=== PATIENT | male | born 1960 | race American Indian/Alaskan Native ===

== ENCOUNTER 2017-07-23 03:03 | Emergency (ER) | payer MEDICARE ==
[2017-07-23] MEDS ORDERED: QUELICIN ONE (03:13)
[2017-07-23] MEDS ORDERED: VERSED IV ONE (03:13)
[2017-07-23] MEDS ORDERED: XOPENEX IH ONE ×2 (03:32→03:48)
[2017-07-23] MEDS ORDERED: ATROVENT IH ONE ×2 (03:32→03:48)
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
--- NOTE | 2017-07-23 04:20 | XRay Report ---
FINAL REPORT EXAM: XR CHEST 1V AP HISTORY: POST ETT PLACEMENT. TECHNIQUE: A portable supine view of the chest was obtained. FINDINGS: The tip of the ET tube is 3 cm above the iliana. There is an NG tube coursing into the stomach. The lungs reveal diffuse interstitial prominence suspicious for congestive heart failure. There are no localized infiltrates. The heart size is normal. Pleural fluid is not seen. The bones and soft tissues do not show any acute changes. IMPRESSION: Satisfactory intubation and placement of nasogastric tube. Congestive heart failure pattern.
[2017-07-23] MEDS ORDERED: AMIDATE IV ONE ×2 (04:22→04:23)
[2017-07-23 04:36] LABS: Hematocrit 23.6 % (35.5-45.6); Hemoglobin 8.4 gm/dl (11.8-15.2); Mean Corpuscular HGB Conc 36 % (32-34); Mean Corpuscular Hemoglobin 31 pg (28-32); Mean Corpuscular Volume 86 fl (84-94); Platelet Count 218 K/mm3 (140-440); Red Blood Count 2.73 M/mm3 (3.65-5.03)
[2017-07-23 04:55] LABS: Creatine Kinase MB 5.5 ng/mL (0.0-4.0)
[2017-07-23 04:58] LABS: Albumin 2.6 g/dL (3.9-5); BUN/Creatinine Ratio 9; Blood Urea Nitrogen 71 mg/dL (9-20); Calcium 7.5 mg/dL (8.4-10.2); Hemolysis Index 40
[2017-07-23] MEDS ORDERED: fentaNYL DRIP Premix 2,000 MCG/100 ML BAG IV SCH (05:00)
[2017-07-23] MEDS ORDERED: DIPRIVAN 10 MG/ML 1,000 MG/100 ML BOTTLE IV SCH (05:00)
[2017-07-23 05:17] LABS: Alanine Aminotransferase < 5 units/L (7-56)
[2017-07-23 05:20] LABS: Chol/HDL Ratio 2.44 %; HDL Cholesterol 47 mg/dL (40-59)
[2017-07-23 05:20] LABS: Bilirubin,Urine NEG (Negative); Blood,Urine MOD (Negative); Color,Urine Straw (Yellow); Hyaline Casts,Urine 1 /LPF; Nitrite,Urine NEG (Negative); Protein,Urine >500 mg/dL (Negative); Urobilinogen,Urine < 2.0 mg/dL (<2.0)
[2017-07-23 05:28] LABS: Amphetamine Screen,Urine PRESUMPTIVE NEGATIVE; Benzodiazepines Screen,Urine PRESUMPTIVE NEGATIVE; Cannabinoid Screen,Urine PRESUMPTIVE NEGATIVE; Cocaine Screen,Urine PRESUMPTIVE NEGATIVE; Methadone Screen,Urine PRESUMPTIVE NEGATIVE; Opiate Screen,Urine PRESUMPTIVE NEGATIVE
--- NOTE | 2017-07-23 05:29 | Cat Scan Report ---
FINAL REPORT EXAM: CT HEAD/BRAIN WO CON HISTORY: ams TECHNIQUE: Routine axial imaging was obtained of the brain without IV contrast. FINDINGS: There is no evidence of acute stroke or hemorrhage. The ventricular system is appropriate in size and is symmetric. The basal cisterns appear normal. The visualized sinuses are clear. The mastoid air cells are well pneumatized IMPRESSION: No acute intracranial process.
[2017-07-23 05:32] LABS: LDL Cholesterol,Direct TNR mg/dL (50-130)
[2017-07-23] MEDS ORDERED: HEPARIN/ 0.45% NACL-25,000 UNIT/500 ML 25,000 UNIT/500 ML BAG IV SCH (06:00)
[2017-07-23 06:31] VITALS: BP 120/77
[2017-07-23 06:34] LABS: Partial Thromboplastin Time 29.1 Sec. (24.2-36.6)
[2017-07-23] MEDS ORDERED: DIPRIVAN 10 MG/ML 1,000 MG/100 ML BOTTLE IV ONE (07:16)
[2017-07-23 10:00] LABS: Band Neutrophils # (Manual) 0.7 K/mm3; Basophils % (Manual) 0 % (0.0-1.8); Total Cells Counted 100
[2017-07-23 10:02] LABS: Anisocytosis 1+
[2017-07-23 10:03] LABS: Schistocytes Few
[2017-07-23 10:05] LABS: Poikilocytosis 2+
== END 2017-07-23 06:43 | disposition other institution (70) ==
LOC: ED 03:03
DX: T54.2X1A Toxic effect of corrosive acids and acid-like substances, accidental (unintentional), initial encounter (principal); T54.91XA Toxic effect of unspecified corrosive substance, accidental (unintentional), initial encounter; T27.7XXA Corrosion of respiratory tract, part unspecified, initial encounter; E11.22 Type 2 diabetes mellitus with diabetic chronic kidney disease; I13.0 Hypertensive heart and chronic kidney disease with heart failure and stage 1 through stage 4 chronic kidney disease, or unspecified chronic kidney disease; N18.9 Chronic kidney disease, unspecified; I21.4 Non-ST elevation (NSTEMI) myocardial infarction; E87.2 Acidosis; D64.9 Anemia, unspecified; J45.909 Unspecified asthma, uncomplicated; F17.200 Nicotine dependence, unspecified, uncomplicated; Y93.89 Activity, other specified; Y99.8 Other external cause status; Y92.009 Unspecified place in unspecified non-institutional (private) residence as the place of occurrence of the external cause
CPT/HCPCS: 31500; 36415; 51702; 70450; 71045; 80053; 80061; 80307; 81001; 82140; 82550; 82553; 82803; 83880; 84484; 85007; 85025; 85610; 85730; 87070; 87205; 93005; 93010; 94640; 96374; 99291; J0330; J2250; J2704; J3010; 94002

== ENCOUNTER 2020-03-08 14:53 | Emergency (ER) | payer MEDICARE ==
--- NOTE | 2020-03-08 15:57 | XRay Report ---
XR chest 1V ap INDICATION / CLINICAL INFORMATION: Chest Pain COMPARISON: None available. FINDINGS: SUPPORT DEVICES: None. HEART / MEDIASTINUM: No significant abnormality. LUNGS / PLEURA: Lungs are clear. Costophrenic sulci are sharp. No pneumothorax. ADDITIONAL FINDINGS: No significant additional findings. IMPRESSION: 1. No acute findings. Signer Name: Jae Metzger MD Signed: 03/08/2020 3:53 PM Workstation Name: [id number]
[2020-03-08 17:41] LABS: Basophils # (Auto) 0.1 K/mm3 (0.0-0.1); Basophils % (Auto) 0.7 % (0.0-1.8); Eosinophils # (Auto) 0.2 K/mm3 (0.0-0.4); Hematocrit 41.1 % (35.5-45.6); Hemoglobin 13.7 gm/dl (11.8-15.2); Lymphocytes # (Auto) 1.1 K/mm3 (1.2-5.4); Lymphocytes % (Auto) 14.6 % (13.4-35.0); Mean Corpuscular HGB Conc 33 % (32-34); Mean Corpuscular Volume 93 fl (84-94); Monocytes # (Auto) 0.7 K/mm3 (0.0-0.8); Platelet Count 209 K/mm3 (140-440); Red Blood Count 4.41 M/mm3 (3.65-5.03); Red Cell Distribution Width 18.1 % (13.2-15.2)
[2020-03-08 18:00] LABS: Chol/HDL Ratio 2.67 %
--- NOTE | 2020-03-08 18:30 | Emergency Department Report ---
ED General Adult HPI - General Chief complaint: Syncope Stated complaint: KIDNEY PAIN Time Seen by Provider: 03/08/20 18:05 Source: patient, family Mode of arrival: Wheelchair Limitations: No Limitations - History of Present Illness Initial comments: The patient presents to the emergency department the chief complaint of cramping throughout his whole body status post dialysis. Patient states he had dialysis today and during his treatment he began to have cramping of his legs which spread to the rest of his body. Patient states afterwards passed out while riding in the vehicle with the sister. Patient states he has passed out before status post dialysis. Patient did have episode of nausea and vomiting. Patient denies chest pain, shortness breath, or headache. -: Sudden Severity scale (0 -10): 2 Quality: other (cramping) Consistency: constant Improves with: none Worsens with: none Associated Symptoms: denies other symptoms Treatments Prior to Arrival: none - Related Data Home Medications Medication Instructions Recorded Confirmed Last Taken Aspirin 81 mg PO DAILY 05/25/18 05/25/18 Unknown Atorvastatin Calcium 80 mg PO DAILY 05/25/18 05/25/18 Unknown Clopidogrel [Plavix] 75 mg PO QDAY 05/25/18 05/25/18 Unknown Furosemide [Lasix TAB] 40 mg PO QDAY 05/25/18 05/25/18 Unknown Hydralazine HCl 50 mg PO TID 05/25/18 05/25/18 Unknown Metoprolol Tartrate 25 mg PO BID 05/25/18 05/25/18 Unknown Tamsulosin [Flomax] 0.4 mg PO QDAY 05/25/18 05/25/18 Unknown amLODIPine 10 mg PO DAILY 05/25/18 05/25/18 05/24/18 09:00 lisinopriL [Zestril TAB] 10 mg PO QDAY 05/25/18 05/25/18 Unknown Previous Rx's Medication Instructions Recorded Last Taken Type Albuterol Sulfate [Ventolin Hfa] 18 gm IH PRN #1 hfa.aer.ad 05/28/18 Unknown Rx Ipratropium/Albuterol Sulfate 1 ampul IH Q8HR #90 ampul.neb 05/28/18 Unknown Rx [DUONEB *Not for PRN Use*] Prednisone [predniSONE 5 mg (6-Day 5 mg PO .TAPER #1 tab.ds.pk 05/28/18 Unknown Rx Pack, 21 Tabs)] Allergies Allergy/AdvReac Type Severity Reaction Status Date / Time No Known Allergies Allergy Verified 03/26/13 02:01 ED Review of Systems ROS: Stated complaint: KIDNEY PAIN Other details as noted in HPI Comment: All other systems reviewed and negative Constitutional: denies: chills, fever Eyes: denies: eye pain, eye discharge, vision change ENT: denies: ear pain, throat pain Respiratory: denies: cough, shortness of breath, wheezing Cardiovascular: denies: chest pain, palpitations Endocrine: no symptoms reported Gastrointestinal: denies: abdominal pain, nausea, diarrhea Genitourinary: denies: urgency, dysuria Musculoskeletal: denies: back pain, joint swelling, arthralgia Skin: denies: rash, lesions Neurological: denies: headache, weakness, paresthesias Psychiatric: denies: anxiety, depression Hematological/Lymphatic: denies: easy bleeding, easy bruising ED Past Medical Hx - Past Medical History Previous Medical History?: Yes Hx Hypertension: Yes Hx Heart Attack/AMI: Yes Hx Congestive Heart Failure: Yes Hx Diabetes: Yes Hx Renal Disease: Yes Hx Asthma: Yes Additional medical history: sciatica, enlarged pancreas - Surgical History Past Surgical History?: Yes Additional Surgical History: fistula repair, cerbral aneurysm - Social History Smoking Status: Never Smoker Substance Use Type: None - Medications Home Medications: Home Medications Medication Instructions Recorded Confirmed Last Taken Type Aspirin 81 mg PO DAILY 05/25/18 05/25/18 Unknown History Atorvastatin Calcium 80 mg PO DAILY 05/25/18 05/25/18 Unknown History Clopidogrel [Plavix] 75 mg PO QDAY 05/25/18 05/25/18 Unknown History Furosemide [Lasix TAB] 40 mg PO QDAY 05/25/18 05/25/18 Unknown History Hydralazine HCl 50 mg PO TID 05/25/18 05/25/18 Unknown History Metoprolol Tartrate 25 mg PO BID 05/25/18 05/25/18 Unknown History Tamsulosin [Flomax] 0.4 mg PO QDAY 05/25/18 05/25/18 Unknown History amLODIPine 10 mg PO DAILY 05/25/18 05/25/18 05/24/18 09:00 History lisinopriL [Zestril TAB] 10 mg PO QDAY 05/25/18 05/25/18 Unknown History Albuterol Sulfate [Ventolin Hfa] 18 gm IH PRN #1 hfa.aer.ad 05/28/18 Unknown Rx Ipratropium/Albuterol Sulfate 1 ampul IH Q8HR #90 ampul.neb 05/28/18 Unknown Rx [DUONEB *Not for PRN Use*] Prednisone [predniSONE 5 mg (6-Day 5 mg PO .TAPER #1 tab.ds.pk 05/28/18 Unknown Rx Pack, 21 Tabs)] ED Physical Exam - General Limitations: No Limitations General appearance: alert, in no apparent distress - Head Head exam: Present: atraumatic, normocephalic - Eye Eye exam: Present: normal appearance, PERRL, EOMI - ENT ENT exam: Present: mucous membranes moist - Neck Neck exam: Present: normal inspection - Respiratory Respiratory exam: Present: normal lung sounds bilaterally. Absent: respiratory distress - Cardiovascular Cardiovascular Exam: Present: regular rate, normal rhythm. Absent: systolic murmur, diastolic murmur, rubs, gallop - GI/Abdominal GI/Abdominal exam: Present: soft, normal bowel sounds. Absent: distended, tenderness - Rectal Rectal exam: Present: deferred - Extremities Exam Extremities exam: Present: other (AV fistula left upper extremity) - Back Exam Back exam: Present: normal inspection - Neurological Exam Neurological exam: Present: alert, oriented X3, CN II-XII intact. Absent: motor sensory deficit - Psychiatric Psychiatric exam: Present: normal affect, normal mood - Skin Skin exam: Present: warm, dry, intact, normal color. Absent: rash ED Course Vital Signs 03/08/20 03/08/20 03/08/20 15:31 17:37 19:01 Temperature 98.4 F 97.9 F Pulse Rate 86 87 83 Respiratory 16 17 19 Rate Blood Pressure 121/64 152/83 Blood Pressure 187/87 [Right] O2 Sat by Pulse 100 100 100 Oximetry ED Medical Decision Making - Lab Data Result diagrams: 03/08/20 16:51 03/08/20 16:51 Lab Results 03/08/20 03/08/20 03/08/20 Range/Units 15:50 16:51 16:51 WBC 7.6 (4.5-11.0) K/mm3 RBC 4.41 (3.65-5.03) M/mm3 Hgb 13.7 (11.8-15.2) gm/dl Hct 41.1 (35.5-45.6) % MCV 93 (84-94) fl MCH 31 (28-32) pg MCHC 33 (32-34) % RDW 18.1 H (13.2-15.2) % Plt Count 209 (140-440) K/mm3 Lymph % (Auto) 14.6 (13.4-35.0) % Jessamine % (Auto) 9.0 H (0.0-7.3) % Eos % (Auto) 2.0 (0.0-4.3) % Baso % (Auto) 0.7 (0.0-1.8) % Lymph # (Auto) 1.1 L (1.2-5.4) K/mm3 Jessamine # (Auto) 0.7 (0.0-0.8) K/mm3 Eos # (Auto) 0.2 (0.0-0.4) K/mm3 Baso # (Auto) 0.1 (0.0-0.1) K/mm3 Seg Neutrophils % 73.7 H (40.0-70.0) % Seg Neutrophils # 5.6 (1.8-7.7) K/mm3 Sodium 144 (137-145) mmol/L Potassium 4.9 (3.6-5.0) mmol/L Chloride 93.9 L (98-107) mmol/L Carbon Dioxide 34 H (22-30) mmol/L Anion Gap 21 mmol/L BUN 24 H (9-20) mg/dL Creatinine 5.8 H (0.8-1.3) mg/dL Estimated GFR 12 ml/min BUN/Creatinine Ratio 4 % Glucose 110 H (75-100) mg/dL POC Glucose 109 H (70-105) Calcium 10.0 (8.4-10.2) mg/dL Total Bilirubin (0.1-1.2) mg/dL Direct Bilirubin (0-0.2) mg/dL Indirect Bilirubin mg/dL AST (5-40) units/L ALT (7-56) units/L Alkaline Phosphatase (35-129) units/L Troponin T 0.169 H* (0.00-0.029) ng/mL Total Protein (6.3-8.2) g/dL Albumin (3.9-5) g/dL Albumin/Globulin Ratio % Triglycerides 114 (2-149) mg/dL Cholesterol 190 (50-199) mg/dL LDL Cholesterol Direct 113 (50-130) mg/dL HDL Cholesterol 71 H (40-59) mg/dL Cholesterol/HDL Ratio 2.67 % 03/08/20 03/08/20 Range/Units 19:00 19:00 WBC (4.5-11.0) K/mm3 RBC (3.65-5.03) M/mm3 Hgb (11.8-15.2) gm/dl Hct (35.5-45.6) % MCV (84-94) fl MCH (28-32) pg MCHC (32-34) % RDW (13.2-15.2) % Plt Count (140-440) K/mm3 Lymph % (Auto) (13.4-35.0) % Jess[place] % (Auto) (0.0-7.3) % Eos % (Auto) (0.0-4.3) % Baso % (Auto) (0.0-1.8) % Lymph # (Auto) (1.2-5.4) K/mm3 Jess[place] # (Auto) (0.0-0.8) K/mm3 Eos # (Auto) (0.0-0.4) K/mm3 Baso # (Auto) (0.0-0.1) K/mm3 Seg Neutrophils % (40.0-70.0) % Seg Neutrophils # (1.8-7.7) K/mm3 Sodium (137-145) mmol/L Potassium (3.6-5.0) mmol/L Chloride (98-107) mmol/L Carbon Dioxide (22-30) mmol/L Anion Gap mmol/L BUN (9-20) mg/dL Creatinine (0.8-1.3) mg/dL Estimated GFR ml/min BUN/Creatinine Ratio % Glucose (75-100) mg/dL POC Glucose (70-105) Calcium (8.4-10.2) mg/dL Total Bilirubin 0.50 (0.1-1.2) mg/dL Direct Bilirubin < 0.2 (0-0.2) mg/dL Indirect Bilirubin 0.3 mg/dL AST 20 (5-40) units/L ALT 10 (7-56) units/L Alkaline Phosphatase 60 (35-129) units/L Troponin T 0.163 H* (0.00-0.029) ng/mL Total Protein 7.8 (6.3-8.2) g/dL Albumin 5.2 H (3.9-5) g/dL Albumin/Globulin Ratio 2.0 % Triglycerides (2-149) mg/dL Cholesterol (50-199) mg/dL LDL Cholesterol Direct (50-130) mg/dL HDL Cholesterol (40-59) mg/dL Cholesterol/HDL Ratio % - EKG Data -: EKG Interpreted by Me EKG shows normal: sinus rhythm Rate: normal - Radiology Data Radiology results: report reviewed - Medical Decision Making Review of the patient's past medical records show that they have had elevated troponin in the past with the patient being chest pain-free elevated troponins likely secondary to the patient being dialysis recipient Discussed results with patient Patient politely declined admission Critical care attestation.: If time is entered above; I have spent that time in minutes in the direct care of this critically ill patient, excluding procedure time. ED Disposition Clinical Impression: Muscle cramping, Syncope Disposition: DC-01 TO HOME OR SELFCARE Is pt being admited?: No Does the pt Need Aspirin: No Condition: Stable Instructions: Syncope (ED), Muscle Spasm (ED) Additional Instructions: return if worse Referrals: PRIMARY CAREMD [Primary Care Provider] - 3-5 Days LEILANI AL MD [Staff Physician] - 3-5 Days Time of Disposition: 21:24
[2020-03-08] MEDS ORDERED: ONDANSETRON 4 MG/2 ML INJ IV ONE (18:31)
[2020-03-08] MEDS ORDERED: MORPHINE 4 MG/1 ML INJ IV ONE (18:31)
[2020-03-08 19:38] LABS: Alanine Aminotransferase 10 units/L (7-56); Albumin 5.2 g/dL (3.9-5)
[2020-03-08 19:41] LABS: Bilirubin,Direct < 0.2 mg/dL (0-0.2)
--- NOTE | 2020-03-08 19:59 | Cat Scan Report ---
CT head/brain wo con INDICATION / CLINICAL INFORMATION: 59 years Male; syncope. TECHNIQUE: Routine CT head without contrast. All CT scans at this location are performed using CT dos e reduction for ALARA by means of automated exposure control. COMPARISON: None. FINDINGS: BRAIN / INTRACRANIAL CONTENTS: No acute hemorrhage, mass effect, midline shift, hydrocephalus, or acu te, large territorial infarct. No chronic infarct or atrophy appreciated. There are [id number] areas of decreased attenuation in the white matter of the cerebral hemisph eres, as well as the gangliocapsular regions. These are nonspecific findings and may be related to mi croangiopathy (hypertension, diabetes, atherosclerosis), given the patient's age. Pontine disease not ed - lacunar infarcts seen leftward of midline. CRANIOCERVICAL JUNCTION: No significant abnormality. ORBITS: No significant abnormality of visualized orbits. SINUSES / MASTOIDS: Mild to moderate opacification of the right sphenoid sinus noted. ADDITIONAL FINDINGS: Mild temporomandibular joint disease suggested on the left. IMPRESSION: 1. No focal mass, hemorrhage, hydrocephalus, or acute, large territorial infarct. Follow-up with diff usion imaging by MRI, as clinically warranted. Signer Name: Fabien Vizcarra MD, III Signed: 03/08/2020 7:54 PM Workstation Name: [email or web address]
[2020-03-08 20:19] VITALS: BP 152/83
== END 2020-03-08 21:35 | disposition home or self-care (01) ==
LOC: ED 14:53
DX: R55 Syncope and collapse (principal); R25.2 Cramp and spasm; I50.9 Heart failure, unspecified; I11.0 Hypertensive heart disease with heart failure; I25.2 Old myocardial infarction; E11.9 Type 2 diabetes mellitus without complications; J45.909 Unspecified asthma, uncomplicated; Z98.890 Other specified postprocedural states; Z79.899 Other long term (current) drug therapy
CPT/HCPCS: 36415; 70450; 71045; 80048; 80061; 80076; 82962; 84484; 85025; 93005; 96374; 96375; 99285; J2270; J2405

== ENCOUNTER 2020-11-30 10:37 | Inpatient (IN) | payer MEDICARE ==
[2020-11-30] MEDS ORDERED: IPRATROPIUM 0.02% NEBU 2.5 ML IH ONE ×2 (10:46→11:12)
[2020-11-30] MEDS ORDERED: ALBUTEROL 2.5 MG/3 ML NEBU IH ONE ×2 (10:47→11:10)
[2020-11-30] MEDS ORDERED: NITROGLYCERIN DRIP 50 MG/250 ML BOTTLE IV ONE (10:48)
--- NOTE | 2020-11-30 11:04 | Emergency Department Report ---
HPI - General Time Seen by Provider: 11/30/20 10:45 - HPI HPI: Room 1 The patient is a 60-year-old male present with a chief complaint of shortness of breath. Per EMS the patient has been complaining of progressive shortness of breath over the past 4 days. Patient acknowledges he has had a cough. With EMS the patient was reportedly hypoxic to 91% on room air. The patient exhibits increased work of breathing and is a very poor historian ED Past Medical Hx - Past Medical History Hx Hypertension: Yes Hx Heart Attack/AMI: Yes Hx Congestive Heart Failure: Yes Hx Diabetes: Yes Hx Renal Disease: Yes Hx Asthma: Yes Additional medical history: sciatica, enlarged pancreas - Surgical History Additional Surgical History: fistula repair, cerbral aneurysm - Family History Family history: no significant - Social History Smoking Status: Unknown if ever smoked Substance Use Type: None - Medications Home Medications: Home Medications Medication Instructions Recorded Confirmed Last Taken Type Aspirin 81 mg PO DAILY 05/25/18 05/25/18 Unknown History Atorvastatin Calcium 80 mg PO DAILY 05/25/18 05/25/18 Unknown History Clopidogrel [Plavix] 75 mg PO QDAY 05/25/18 05/25/18 Unknown History Furosemide [Lasix TAB] 40 mg PO QDAY 05/25/18 05/25/18 Unknown History Hydralazine HCl 50 mg PO TID 05/25/18 05/25/18 Unknown History Metoprolol Tartrate 25 mg PO BID 05/25/18 05/25/18 Unknown History Tamsulosin [Flomax] 0.4 mg PO QDAY 05/25/18 05/25/18 Unknown History amLODIPine 10 mg PO DAILY 05/25/18 05/25/18 05/24/18 09:00 History lisinopriL [Zestril TAB] 10 mg PO QDAY 05/25/18 05/25/18 Unknown History Albuterol Sulfate [Ventolin Hfa] 18 gm IH PRN #1 hfa.aer.ad 05/28/18 Unknown Rx Ipratropium/Albuterol Sulfate 1 ampul IH Q8HR #90 ampul.neb 05/28/18 Unknown Rx [DUONEB *Not for PRN Use*] Prednisone [predniSONE 5 mg (6-Day 5 mg PO .TAPER #1 tab.ds.pk 05/28/18 Unknown Rx Pack, 21 Tabs)] ED Review of Systems ROS: Stated complaint: CARDIC ARREST Other details as noted in HPI Comment: Unobtainable due to pts medical conditions Physical Exam - Physical Exam Physical Exam: GENERAL: The patient is well-developed well-nourished male lying on stretcher exhibiting increased work of breathing. [] HEENT: Normocephalic. Atraumatic. Extraocular motions are intact. Patient has moist mucous membranes. NECK: Supple. Trachea midline CHEST/LUNGS: Diffuse rhonchi. Increased work of breathing. Accessory muscle use HEART/CARDIOVASCULAR: Regular. There is tachycardia. There is no gallop rub or murmur. ABDOMEN: Abdomen is soft, nontender. Patient has normal bowel sounds. There is no abdominal distention. SKIN: There is no rash. There is no edema. There is no diaphoresis. NEURO: The patient is awake, alert, and oriented. The patient is cooperative. The patient has no focal neurologic deficits. The patient has normal speech MUSCULOSKELETAL: There is no evidence of acute injury. ED Course - Reevaluation(s) Reevaluation #1: 11/30/20 14:28 Patient drastically improved on nitro drip. Removing BiPAP to give trial of moore pplemental O2 by nasal cannula ED Medical Decision Making - Lab Data Result diagrams: 11/30/20 Unknown 11/30/20 Unknown Laboratory Tests 11/30/20 11/30/20 11/30/20 10:47 10:47 13:28 WBC RBC Hgb Hct MCV MCH MCHC RDW Plt Count Lymph % (Auto) [place] % (Auto) Eos % (Auto) Baso % (Auto) Lymph # (Auto) [place] # (Auto) Eos # (Auto) Baso # (Auto) Seg Neutrophils % Seg Neutrophils # PT 12.8 INR 0.90 APTT 29.2 VBG pH 7.283 L Sodium TNR Potassium TNR Chloride TNR Carbon Dioxide TNR Anion Gap TNR BUN TNR Creatinine TNR Estimated GFR TNR BUN/Creatinine Ratio TNR Glucose TNR Lactic Acid Calcium TNR Total Bilirubin TNR AST TNR ALT TNR Alkaline Phosphatase TNR Total Creatine Kinase TNR CK-MB (CK-2) TNR CK-MB (CK-2) Rel Index TNR Troponin T TNR NT-Pro-B Natriuret Pep TNR Total Protein TNR Albumin TNR Albumin/Globulin Ratio TNR TSH Free T4 11/30/20 11/30/20 11/30/20 13:28 13:28 Unknown WBC 13.9 H RBC 4.00 Hgb 12.0 Hct 36.5 MCV 91 MCH 30 MCHC 33 RDW 20.3 H Plt Count 239 Lymph % (Auto) 16.7 [place] % (Auto) 7.1 Eos % (Auto) 3.1 Baso % (Auto) 2.7 H Lymph # (Auto) 2.3 [place] # (Auto) 1.0 H Eos # (Auto) 0.4 Baso # (Auto) 0.4 H Seg Neutrophils % 70.4 H Seg Neutrophils # 9.8 H PT INR APTT VBG pH Sodium Potassium Chloride Carbon Dioxide Anion Gap BUN Creatinine Estimated GFR BUN/Creatinine Ratio Glucose Lactic Acid 3.00 H* Calcium Total Bilirubin AST ALT Alkaline Phosphatase Total Creatine Kinase CK-MB (CK-2) CK-MB (CK-2) Rel Index Troponin T NT-Pro-B Natriuret Pep Total Protein Albumin Albumin/Globulin Ratio TSH 1.360 Free T4 1.39 11/30/20 Unknown WBC RBC Hgb Hct MCV MCH MCHC RDW Plt Count Lymph % (Auto) [place] % (Auto) Eos % (Auto) Baso % (Auto) Lymph # (Auto) [place] # (Auto) Eos # (Auto) Baso # (Auto) Seg Neutrophils % Seg Neutrophils # PT INR APTT VBG pH Sodium 143 Potassium 3.9 Chloride 99.5 Carbon Dioxide 26 Anion Gap 21 BUN 30 H Creatinine 8.2 H Estimated GFR 8 BUN/Creatinine Ratio 4 Glucose 217 H Lactic Acid Calcium 9.5 Total Bilirubin 0.40 AST 27 ALT 38 Alkaline Phosphatase 93 Total Creatine Kinase CK-MB (CK-2) CK-MB (CK-2) Rel Index Troponin T NT-Pro-B Natriuret Pep Total Protein 6.4 Albumin 4.3 Albumin/Globulin Ratio 2.0 TSH Free T4 - EKG Data -: EKG Interpreted by Me EKG shows normal: sinus rhythm Rate: tachycardia (111 bpm) - EKG Data When compared to previous EKG there are: previous EKG unavailable Interpretation: nonspecific ST-T wave osiris (T wave inversions in leads I, aVL, V5, V6) - Radiology Data Radiology results: report reviewed (Chest x-ray), image reviewed (Chest x-ray) interpreted by me: Chest [id number]. No pneumothorax. [facility] [address] [place] [address] XRay Report Signed Patient: MARILOU BALES MR#: [id number] : 1960 Acct:[id number] Age/Sex: 60 / M ADM Date: 11/30/20 Loc: ED Attending Dr: Ordering Physician: JUAN GLYNN MD Date of Service: 11/30/20 Procedure(s): XR chest 1V ap Accession Number(s): [id number] cc: JUAN GLYNN MD Fluoro Time In Minutes: CHEST 1 VIEW 11/30/2020 10:31 AM INDICATION / CLINICAL INFORMATION: Shortness of breath. COMPARISON: 03/08/2020 FINDINGS: SUPPORT DEVICES: None. HEART / MEDIASTINUM: Mild cardiomegaly. LUNGS / PLEURA: Mild interstitial edema has developed. No pneumothorax. ADDITIONAL FINDINGS: No significant additional findings. IMPRESSION: 1. Findings likely indicating mild CHF as above. Signer Name: Rafat Marti MD Signed: 11/30/2020 11:33 AM Workstation Name: [id number] Transcribed By: LORRI Dictated By: Rafat Marti MD Electronically Authenticated By: Rafat Marti MD Signed Date/Time: 11/30/20 1133 DD/ 1132 TD/TT: Print Cancel - Differential Diagnosis Volume overload, COPD exacerbation, hypertensive emergency Critical care attestation.: If time is entered above; I have spent that time in minutes in the direct care of this critically ill patient, excluding procedure time. ED Disposition Clinical Impression: Hypertensive urgency, Shortness of breath, Fluid overload Disposition: DC-09 OP ADMIT IP TO THIS HOSP Is pt being admited?: Yes Does the pt Need Aspirin: Yes Condition: Fair Time of Disposition: 14:48 (Hospitalist paged (Dr. Cruz))
[2020-11-30 11:32] LABS: Basophils # (Auto) 0.4 K/mm3 (0.0-0.1); Basophils % (Auto) 2.7 % (0.0-1.8); Eosinophils # (Auto) 0.4 K/mm3 (0.0-0.4); Eosinophils % (Auto) 3.1 % (0.0-4.3); Hematocrit 36.5 % (35.5-45.6); Lymphocytes # (Auto) 2.3 K/mm3 (1.2-5.4); Lymphocytes % (Auto) 16.7 % (13.4-35.0); Mean Corpuscular HGB Conc 33 % (32-34); Mean Corpuscular Volume 91 fl (84-94); Monocytes % (Auto) 7.1 % (0.0-7.3); Platelet Count 239 K/mm3 (140-440)
[2020-11-30 11:34] LABS: Red Cell Distribution Width 20.3 % (13.2-15.2)
--- NOTE | 2020-11-30 11:38 | XRay Report ---
CHEST 1 VIEW 11/30/2020 10:31 AM INDICATION / CLINICAL INFORMATION: Shortness of breath. COMPARISON: 03/08/2020 FINDINGS: SUPPORT DEVICES: None. HEART / MEDIASTINUM: Mild cardiomegaly. LUNGS / PLEURA: Mild interstitial edema has developed. No pneumothorax. ADDITIONAL FINDINGS: No significant additional findings. IMPRESSION: 1. Findings likely indicating mild CHF as above. Signer Name: Rafat Marti MD Signed: 11/30/2020 11:33 AM Workstation Name: [email or web address]
[2020-11-30 11:52] LABS: INR 0.9 (0.87-1.13); Partial Thromboplastin Time 29.2 Sec. (24.2-36.6)
[2020-11-30 12:04] LABS: BUN/Creatinine Ratio TNR; Blood Urea Nitrogen TNR mg/dL (9-20)
[2020-11-30 12:05] LABS: Alanine Aminotransferase TNR units/L (7-56); Albumin TNR g/dL (3.9-5); Calcium TNR mg/dL (8.4-10.2); Creatine Kinase MB TNR ng/mL (0.0-4.0)
[2020-11-30 12:06] LABS: Hemolysis Index TNR
[2020-11-30 14:15] LABS: Free T4 (Free Thyroxine) 1.39 ng/dL (0.76-1.46)
[2020-11-30 14:41] LABS: Albumin 4.3 g/dL (3.9-5); Calcium 9.5 mg/dL (8.4-10.2)
--- NOTE | 2020-11-30 14:49 | History and Physical Report ---
History of Present Illness Chief complaint: it is hard to catch my breath History of present illness: 60 YO Male with ESRD on HD(T,R,Sa) who underwent dialysis yesterday, HTN, NC, CHF, Asthma, LDD presents to ED for evaluation. Patient reports "it is hard to catch my breath". Patient states that he has experienced shortness of breath over the past 4 days with persistent symptoms over the same timeframe. Patient acknowledges dry cough. EMS was notified and upon arrival the patient was found to be in distress and subsequently transported to [facility] for further care and evaluation of the aforementioned symptoms. Patient seen and evaluated in the emergency department. All lab and imaging studies reviewed. Patient found to have a pulse oximetry of 88% on room air with exertion which is consistent with acute hypoxemic respiratory failure. Patient also found to have hypertensive urgency with blood pressure of 263/162, metabolic acidosis, as well as end-stage renal disease. Patient treated with noninvasive positive pressure ventilation with mild improvement in symptoms. Patient also initiated on nitro drip and admitted to ICU. Critical care team consulted in ED. Patient denies fever, chills, chest pain, palpitation, productive cough, skin rash recent ill contacts, known exposure to COVID-19. Prior admission on 05/25/2018 reviewed. All medication listed at time of admission has been reconciled. Advanced care planning conducted in ED. Nephrology team consulted in ED. Past History Past Medical History: acute NC, ESRD, heart failure, hypertension Past Surgical History: Other (Fistula repair, cerebral aneurysm) Social history: single. denies: smoking, alcohol abuse, prescription drug abuse Family history: diabetes, hypertension Medications and Allergies Allergies Allergy/AdvReac Type Severity Reaction Status Date / Time No Known Allergies Allergy Verified 03/26/13 02:01 Home Medications Medication Instructions Recorded Confirmed Last Taken Type Aspirin 81 mg PO DAILY 05/25/18 05/25/18 Unknown History Atorvastatin Calcium 80 mg PO DAILY 05/25/18 05/25/18 Unknown History Clopidogrel [Plavix] 75 mg PO QDAY 05/25/18 05/25/18 Unknown History Furosemide [Lasix TAB] 40 mg PO QDAY 05/25/18 05/25/18 Unknown History Hydralazine HCl 50 mg PO TID 05/25/18 05/25/18 Unknown History Metoprolol Tartrate 25 mg PO BID 05/25/18 05/25/18 Unknown History Tamsulosin [Flomax] 0.4 mg PO QDAY 05/25/18 05/25/18 Unknown History amLODIPine 10 mg PO DAILY 05/25/18 05/25/18 05/24/18 09:00 History lisinopriL [Zestril TAB] 10 mg PO QDAY 05/25/18 05/25/18 Unknown History Albuterol Sulfate [Ventolin Hfa] 18 gm IH PRN #1 hfa.aer.ad 05/28/18 Unknown Rx Ipratropium/Albuterol Sulfate 1 ampul IH Q8HR #90 ampul.neb 05/28/18 Unknown Rx [DUONEB *Not for PRN Use*] Prednisone [predniSONE 5 mg (6-Day 5 mg PO .TAPER #1 tab.ds.pk 05/28/18 Unknown Rx Pack, 21 Tabs)] Active Meds: Active Medications Nitroglycerin/Dextrose (Tridil Drip 50mg/250ml) 50 mg in 250 mls @ 3 mls/hr IV TITR ONE; Protocol Stop: 12/03/20 22:07 Last Titration: 11/30/20 14:38 Dose: 55 mcg/min, 16.5 mls/hr Documented by: Review of Systems Constitutional: no weight loss, no weight gain, no fever, no chills Ears, nose, mouth and throat: no ear pain, no decreased hearing Cardiovascular: no chest pain, no rapid/irregular heart beat, no syncope Respiratory: cough, shortness of breath, no congestion, no wheezing, no pain Gastrointestinal: no abdominal pain, no nausea, no vomiting, no diarrhea, no constipation Genitourinary Male: no hematuria, no flank pain, no discharge, no urinary hesitancy, no nocturia Rectal: no pain, no incontinence, no bleeding Musculoskeletal: no neck stiffness, no neck pain, no shooting arm pain, no leg numbness/tingling Integumentary: no rash, no pruritis, no redness, no sores, no wounds Neurological: no transient paralysis, no paralysis, no weakness, no parathesias, no numbness, no tingling Psychiatric: no anxiety, no memory loss, no change in sleep habits, no sleep disturbances, no change in appetite, no suicidal ideation Endocrine: no cold intolerance, no heat intolerance, no excessive thirst, no polydipsia, no excessive sweating, no flushing Hematologic/Lymphatic: no easy bruising, no easy bleeding, no lymphedema Allergic/Immunologic: no urticaria, no allergic rhinitis, no persistent infections, no anaphylaxis Exam - Constitutional Vitals: Temp Pulse Resp BP Pulse Ox 99 H 14 171/85 100 11/30/20 14:01 11/30/20 14:01 11/30/20 14:01 11/30/20 14:01 General appearance: Present: mild distress - EENT Eyes: Present: PERRL ENT: hearing intact, clear oral mucosa - Neck Neck: Present: supple, normal ROM - Respiratory Respiratory effort: normal, labored, accessory muscle use Respiratory: bilateral: diminished, rhonchi - Cardiovascular Heart Sounds: Present: S1 & S2. Absent: rub, click - Extremities Extremities: pulses symmetrical, No edema Peripheral Pulses: within normal limits - Abdominal General gastrointestinal: Present: soft, non-tender, non-distended, normal bowel sounds Male genitourinary: Present: normal - Integumentary Integumentary: Present: clear, warm, dry - Musculoskeletal Musculoskeletal: gait normal, strength equal bilaterally - Psychiatric Psychiatric: appropriate mood/affect, intact judgment & insight - Neurologic Neurologic: CNII-XII intact, moves all extremities HEART Score - HEART Score Troponin: Troponin T TNR 11/30/20 10:47 Results - Labs CBC & Chem 7: 11/30/20 Unknown 11/30/20 Unknown Labs: Abnormal lab results 11/30/20 11/30/20 11/30/20 Range/Units 13:28 13:28 Unknown WBC 13.9 H (4.5-11.0) K/mm3 RDW 20.3 H (13.2-15.2) % Baso % (Auto) 2.7 H (0.0-1.8) % [place] # (Auto) 1.0 H (0.0-0.8) K/mm3 Baso # (Auto) 0.4 H (0.0-0.1) K/mm3 Seg Neutrophils % 70.4 H (40.0-70.0) % Seg Neutrophils # 9.8 H (1.8-7.7) K/mm3 VBG pH 7.283 L (7.320-7.420) BUN (9-20) mg/dL Creatinine (0.8-1.3) mg/dL Glucose (75-100) mg/dL Lactic Acid 3.00 H* (0.7-2.0) mmol/L 11/30/20 Range/Units Unknown WBC (4.5-11.0) K/mm3 RDW (13.2-15.2) % Baso % (Auto) (0.0-1.8) % [place] # (Auto) (0.0-0.8) K/mm3 Baso # (Auto) (0.0-0.1) K/mm3 Seg Neutrophils % (40.0-70.0) % Seg Neutrophils # (1.8-7.7) K/mm3 VBG pH (7.320-7.420) BUN 30 H (9-20) mg/dL Creatinine 8.2 H (0.8-1.3) mg/dL Glucose 217 H (75-100) mg/dL Lactic Acid (0.7-2.0) mmol/L Assessment and Plan - Patient Problems (1) Acute respiratory failure with hypoxia Current Visit: No Status: Acute Plan to address problem: Patient treated with noninvasive positive pressure ventilation, supplemental oxygen, chest x-ray, supportive care. The high probability of a clinically significant, sudden or life threatening deterioration of the [pulmonary, renal,] system(s) required my full and direct attention, intervention and personal management. The aggregate critical care time was [65] minutes. This time is in addition to time spent performing reported procedures but includes the following: [x] Data Review and interpretation [x] Patient assessment and monitoring of vital signs [x] Documentation [x] Medication orders and management (2) Hypertensive emergency Current Visit: Yes Status: Acute Plan to address problem: Patient initiated on nitro drip. Patient maintain systolic blood pressure of 200. Patient discontinued on nitro drip and initiated on Cardene drip. (3) End stage renal disease Current Visit: Yes Status: Acute Plan to address problem: Nephrology team consulted in ED, dialysis as per renal team. Avoid nephrotoxic agents (4) Metabolic acidosis Current Visit: Yes Status: Acute Plan to address problem: BMP, IV bicarbonate therapy as clinically indicated, dialysis as per renal team. (5) DVT prophylaxis Current Visit: Yes Status: Acute Plan to address problem: SCDs bilateral lower extremities while in bed, patient is ambulatory (6) Advance care planning Current Visit: Yes Status: Acute Plan to address problem: Disease education conducted, care plan discussed, diagnosis discussed, prognosis discussed, patient is full code, patient knowledges understanding and agreement with care plan, +30 minutes.
[2020-11-30] MEDS ORDERED: ALBUTEROL 2.5 MG/3 ML NEBU IH PRN (17:00)
[2020-11-30] MEDS: amLODIPine 10 MG TAB PO SCH (17:56)
[2020-11-30] MEDS: ASPIRIN 81 MG TAB CHEW PO SCH (17:56)
--- NOTE | 2020-11-30 18:16 | Electrocardiograph Report ---
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
[2020-11-30] MEDS ORDERED: niCARdipine DRIP 40 MG/200 ML BAG IV ONE (18:47)
[2020-11-30] MEDS ORDERED: NON-FORMULARY EACH (Hydralazine Hcl [Hydralazine Hcl] 50 MG Tablet) PO SCH (20:00)
[2020-11-30] MEDS ORDERED: SODIUM CHLORIDE 0.9% 100 ML IV PRN (20:36)
--- NOTE | 2020-11-30 20:41 | Event Note ---
Date: 11/30/20 Patient with ESRD on hemodiaysis. Consulted for acute hypoxic respiratory failure requiring bipap concerning for pulmonary edema. Patient also a ccelerated hypertension requiring with cardene gtt. STAT HD ordered for emergent hemodiaylsis.
[2020-11-30] MEDS: hydrALAZINE 25 MG TAB PO SCH (21:14)
[2020-11-30] MEDS: METOPROLOL TARTRATE 25 MG TAB PO SCH ×2 (21:15→22:00)
[2020-11-30] MEDS: FUROSEMIDE 40 MG TAB PO SCH (23:26)
[2020-12-01 00:01] LABS: Hepatitis B Surface Antigen Non-Reactive (Negative); Hepatitis C Virus Antibody Non-Reactive (NonReactive)
[2020-12-01] MEDS: hydrALAZINE 25 MG TAB PO SCH ×2 (05:17→13:32)
[2020-12-01] MEDS: NICARDIPINE IV SCH ×2 (05:40→11:26)
[2020-12-01] MEDS: SODIUM CHLORIDE 0.9% IV SCH ×2 (05:40→11:26)
[2020-12-01 06:10] LABS: Basophils % (Auto) 0.2 % (0.0-1.8); Eosinophils % (Auto) 0.1 % (0.0-4.3); Hematocrit 31.6 % (35.5-45.6); Hemoglobin 10.8 gm/dl (11.8-15.2); Lymphocytes # (Auto) 0.8 K/mm3 (1.2-5.4); Lymphocytes % (Auto) 7.6 % (13.4-35.0); Mean Corpuscular HGB Conc 34 % (32-34); Mean Corpuscular Volume 90 fl (84-94); Monocytes # (Auto) 1.1 K/mm3 (0.0-0.8); Monocytes % (Auto) 11.2 % (0.0-7.3); Platelet Count 172 K/mm3 (140-440)
[2020-12-01 07:00] LABS: Albumin 4.1 g/dL (3.9-5); Calcium 9.6 mg/dL (8.4-10.2)
[2020-12-01] MEDS: amLODIPine 10 MG TAB PO SCH (09:27)
[2020-12-01] MEDS: ASPIRIN 81 MG TAB CHEW PO SCH (09:27)
[2020-12-01] MEDS: TAMSULOSIN 0.4 MG CAP PO SCH (09:27)
[2020-12-01] MEDS: FUROSEMIDE 40 MG TAB PO SCH (09:27)
[2020-12-01] MEDS: LISINOPRIL 10 MG TAB PO SCH (09:27)
[2020-12-01] MEDS: CLOPIDOGREL 75 MG TAB PO SCH (09:27)
[2020-12-01] MEDS: METOPROLOL TARTRATE 25 MG TAB PO SCH (09:28)
[2020-12-01] MEDS ORDERED: ATORVASTATIN CALCIUM 80 MG PO SCH (10:00)
[2020-12-01] MEDS ORDERED: SODIUM CHLORIDE 0.9% 100 ML IV PRN (10:08)
--- NOTE | 2020-12-01 13:19 | Consultation ---
History of Present Illness - Reason for Consult Consult date: 12/01/20 end stage renal disease - History of Present Illness The patient is a 60 YO male with history significant for DM type 2, HTN, CAD, Asthma, LDD, Anemia and ESRD on HD(TTS) who presented to [facility] ED 11/30 with c/o sob. Patient states that he developed shortness of breath about 2 days ago and associated dry cough. Patient denies fever, chills, leg swelling, chest pain, palpitation, skin rash, N,V, D, abd pain, recent ill contacts or known exposure to COVID-19. On presentation the pulse oximetry was 88% on room air. Patient also found to have hypertensive urgency with blood pressure of 263/162. CXR showed interstitial edema. Patient was treated with noninvasive positive pressure ventilation with mild improvement in symptoms. Patient was also initiated on nitro drip and admitted to ICU. He underwent urgent hemodialysis with removal of about 2 Lts of fluid. Nephrology was consulted for ESRD management. Past History Past Medical History: acute [place], diabetes, dialysis, ESRD, heart failure, hypertension Past Surgical History: Other (Fistula repair, cerebral aneurysm) Social history: single. denies: smoking, alcohol abuse, prescription drug abuse Family history: diabetes, hypertension Medications and Allergies Allergies Allergy/AdvReac Type Severity Reaction Status Date / Time No Known Allergies Allergy Verified 03/26/13 02:01 Home Medications Medication Instructions Recorded Confirmed Last Taken Type Aspirin 81 mg PO DAILY 05/25/18 05/25/18 Unknown History Atorvastatin Calcium 80 mg PO DAILY 05/25/18 05/25/18 Unknown History Clopidogrel [Plavix] 75 mg PO QDAY 05/25/18 05/25/18 Unknown History Furosemide [Lasix TAB] 40 mg PO QDAY 05/25/18 05/25/18 Unknown History Hydralazine HCl 50 mg PO TID 05/25/18 05/25/18 Unknown History Metoprolol Tartrate 25 mg PO BID 05/25/18 05/25/18 Unknown History Tamsulosin [Flomax] 0.4 mg PO QDAY 05/25/18 05/25/18 Unknown History amLODIPine 10 mg PO DAILY 05/25/18 05/25/18 05/24/18 09:00 History lisinopriL [Zestril TAB] 10 mg PO QDAY 05/25/18 05/25/18 Unknown History Albuterol Sulfate [Ventolin Hfa] 18 gm IH PRN #1 hfa.aer.ad 05/28/18 Unknown Rx Ipratropium/Albuterol Sulfate 1 ampul IH Q8HR #90 ampul.neb 05/28/18 Unknown Rx [DUONEB *Not for PRN Use*] Prednisone [predniSONE 5 mg (6-Day 5 mg PO .TAPER #1 tab.ds.pk 05/28/18 Unknown Rx Pack, 21 Tabs)] Active Meds: Active Medications Albuterol (Albuterol 2.5 Mg/3 Ml Nebu) 2.5 mg IH Q3HRT PRN PRN Reason: Shortness Of Breath Amlodipine Besylate (Amlodipine 10 Mg Tab) 10 mg PO DAILY [facility] Last Admin: 12/01/20 09:27 Dose: 10 mg Documented by: Aspirin (Aspirin 81 Mg Tab Chew) 81 mg PO DAILY [facility] Last Admin: 12/01/20 09:27 Dose: 81 mg Documented by: Atorvastatin Calcium (Atorvastatin 40 Mg Tab) 80 mg PO QHS [facility] Last Admin: 11/30/20 21:14 Dose: 80 mg Documented by: Clopidogrel Bisulfate (Clopidogrel 75 Mg Tab) 75 mg PO QDAY [facility] Last Admin: 12/01/20 09:27 Dose: 75 mg Documented by: Furosemide (Furosemide 40 Mg Tab) 40 mg PO QDAY [facility] Last Admin: 12/01/20 09:27 Dose: 40 mg Documented by: Hydralazine HCl (Hydralazine 25 Mg Tab) 50 mg PO Q8HR [facility] Last Admin: 12/01/20 05:17 Dose: Not Given Documented by: Nitroglycerin/Dextrose (Tridil Drip 50mg/250ml) 50 mg in 250 mls @ 3 mls/hr IV TITR ONE; Protocol Stop: 12/03/20 22:07 Last Titration: 11/30/20 19:05 Dose: 0 mcg/min, 0 mls/hr Documented by: Sodium Chloride (Nacl 0.9%) 100 mls @ 999 mls/hr IV LIO PRN PRN Reason: Hypotension Nicardipine HCl 40 mg/ Sodium (Chloride) 250 mls @ 31.25 mls/hr IV TITR MAILE; Protocol Last Titration: 12/01/20 12:30 Dose: 7 mg/hr, 43.75 mls/hr Documented by: Sodium Chloride (Nacl 0.9%) 100 mls @ 999 mls/hr IV LIO PRN PRN Reason: Hypotension Lisinopril (Lisinopril 10 Mg Tab) 10 mg PO QDAY [facility] Last Admin: 12/01/20 09:27 Dose: 10 mg Documented by: Metoprolol Tartrate (Metoprolol Tartrate 25 Mg Tab) 25 mg PO BID [facility] Last Admin: 12/01/20 09:28 Dose: 25 mg Documented by: Sodium Chloride (Sodium Chloride 0.9% 10 Ml Flush Syringe) 10 ml IV BID [facility] Last Admin: 12/01/20 09:29 Dose: 10 ml Documented by: Sodium Chloride (Sodium Chloride 0.9% 10 Ml Flush Syringe) 10 ml IV PRN PRN PRN Reason: LINE FLUSH Tamsulosin HCl (Tamsulosin 0.4 Mg Cap) 0.4 mg PO QDAY [facility] Last Admin: 12/01/20 09:27 Dose: 0.4 mg Documented by: Review of Systems Constitutional: no weight loss, no weight gain, no fever, no chills, no anorexia, no weakness Cardiovascular: orthopnea, shortness of breath, dyspnea on exertion, no chest pain, no edema, no syncope, no lightheadedness Respiratory: cough, shortness of breath, dyspnea on exertion Gastrointestinal: no abdominal pain, no nausea, no vomiting, no diarrhea, no melena Genitourinary Male: no dysuria, no hematuria Neurological: no convulsions, no aphasia, no change in speech, no change in mentation, no confusion Exam - Vital Signs Vital signs: Vital Signs Pulse Resp Pulse Ox 180 H 36 H 100 11/30/20 10:40 11/30/20 10:40 11/30/20 10:40 Results - Lab Results 12/01/20 04:46 12/01/20 04:46 Most recent lab results ABG pH 7.401 (7.320-7.450) 11/30/20 20:37 ABG O2 Saturation 95.3 (0-100) 11/30/20 20:37 Calcium 9.6 mg/dL (8.4-10.2) 12/01/20 04:46 Assessment and Plan 1. ESRD: Patient is on maintenance hemodialysis three times a week, TTS schedule. Last outpatient HD 11/29. Meds dosage based on GFR. Hemodialysis: 11/30. 2. FEN: Volume overload, UF with HD as tolerated. Monitor lytes and volume status. 3. Acute hypoxic resp failure: 2/2 volume overload. Covid negative. UF with HD. Improving. 4. Hypertensive urgency: Nitro drip. Adjust meds as appropriate. UF with HD. Monitor BP. 5. Anemia, POA: 2/2 ESRD. Epogen is needed. 6. DM type 2: SSI. Monitor. 7. Medical compliance issues: Patient frequently refuses UF with HD. Compliance encouraged. Subjective: Patient was seen and examined at the bedside. General Appearance: General appearance: well-developed, appears stated age, not in distress HEENT: ATNC, pupils equal Neck: trachea midline Respiratory: ctab Heart: regular, S1S2, no murmur Abdomen: soft, bowel sounds heard, not tender Integumentary: no rash, warm and dry Neurologic: AO, able to move extremities Ext: no edema Hemodialysis access: L arm AVF
--- NOTE | 2020-12-01 16:38 | Progress Note ---
Assessment and Plan -- Acute respiratory failure with hypoxia Likely due to volume overload from end-stage renal disease Patient treated with noninvasive positive pressure ventilation, Continue supplemental oxygen, hemodialysis as needed, supportive care -- Hypertensive emergency Patient initiated on nitro drip. Patient maintain systolic blood pressure of 200. Patient discontinued on nitro drip and initiated on Cardene drip. Initiate home meds and wean off from Cardene drip as tolerated -- End stage renal disease Nephrology team consulted in ED, dialysis as per renal team. Avoid nephrotoxic agents -- Metabolic acidosis Follow BMP, IV bicarbonate therapy as clinically indicated, dialysis as per renal team. --DVT prophylaxis SCDs bilateral lower extremities while in bed, patient is ambulatory --Full CODE STATUS Daily clinical care: 12/01/20: Patient received emergent hemodialysis, remains on Cardene drip for uncontrolled blood pressure. Weaned off from BiPAP and currently on nasal cannula. Will transfer to [facility], wean off from Cardene drip as tolerated. Subjective Date of service: 12/01/20 Interval history: Patient seen and examined. Medical records and medication list reviewed. No acute event overnight noted by the RN. Patient had emergent hemodialysis, BP remains elevated, continue Cardene drip Discussed plan of care at bedside with patient. Objective - Exam Narrative Exam: GENERAL: well-developed elderly -[place] male lying on bed appeared to be in no discomfort. HEENT: Normocephalic. Atraumatic. No conjunctival congestion or icterus. Patient has moist mucous membranes. NECK: Supple. Trachea midline. CHEST/LUNGS: Clear to auscultated bilaterally, breathing nonlabored with nasal cannula O2. No wheezes crackles or rhonchi. HEART/CARDIOVASCULAR: Regular in rate and rhythm. S1 and S2 positive. ABDOMEN: Abdomen is soft, nontender. Patient has normal bowel sounds. SKIN: There is no rash. Warm and dry. NEURO: No focal motor deficit. Follows command. MUSCULOSKELETAL: No joint effusion or tenderness. EXTRIMITY: No edema, no cyanosis or clubbing. PSYCH: Cooperative. - Constitutional Vitals: Vital Signs - 12hr 12/01/20 12/01/20 12/01/20 04:41 04:51 05:00 Temperature Pulse Rate 103 H 102 H 100 H Pulse Rate [ From Monitor] Respiratory 20 20 16 Rate Blood Pressure 186/92 188/92 175/93 O2 Sat by Pulse 100 99 99 Oximetry 12/01/20 12/01/20 12/01/20 05:11 05:17 05:21 Temperature Pulse Rate 100 H 107 H 100 H Pulse Rate [ From Monitor] Respiratory 19 16 Rate Blood Pressure 175/93 181/94 O2 Sat by Pulse 100 99 Oximetry 12/01/20 12/01/20 12/01/20 05:30 05:41 05:51 Temperature Pulse Rate 99 H 101 H 99 H Pulse Rate [ From Monitor] Respiratory 18 15 18 Rate Blood Pressure 196/92 196/92 188/92 O2 Sat by Pulse 98 99 99 Oximetry 12/01/20 12/01/20 12/01/20 06:00 06:11 06:21 Temperature Pulse Rate 98 H 97 H 96 H Pulse Rate [ From Monitor] Respiratory 18 16 15 Rate Blood Pressure 187/92 187/92 193/99 O2 Sat by Pulse 99 98 97 Oximetry 12/01/20 12/01/20 12/01/20 06:30 06:41 06:50 Temperature Pulse Rate 98 H 97 H 112 H Pulse Rate [ From Monitor] Respiratory 16 17 20 Rate Blood Pressure 181/88 181/88 195/100 O2 Sat by Pulse 99 98 100 Oximetry 12/01/20 12/01/20 12/01/20 07:00 07:10 07:21 Temperature 98.2 F Pulse Rate 138 H 138 H 115 H Pulse Rate [ From Monitor] Respiratory 20 22 21 Rate Blood Pressure 195/100 195/100 166/52 O2 Sat by Pulse 100 100 98 Oximetry 12/01/20 12/01/20 12/01/20 07:30 07:41 07:51 Temperature Pulse Rate 107 H 102 H 104 H Pulse Rate [ From Monitor] Respiratory 21 23 23 Rate Blood Pressure 168/51 168/51 168/66 O2 Sat by Pulse 100 100 99 Oximetry 12/01/20 12/01/20 12/01/20 08:00 08:11 08:21 Temperature Pulse Rate 107 H 118 H 108 H Pulse Rate [ 104 H From Monitor] Respiratory 23 22 24 Rate Blood Pressure 192/66 192/66 180/69 O2 Sat by Pulse 99 100 100 Oximetry 12/01/20 12/01/20 12/01/20 08:30 08:41 08:51 Temperature Pulse Rate 108 H 107 H 106 H Pulse Rate [ From Monitor] Respiratory 26 H 17 16 Rate Blood Pressure 169/64 169/64 160/69 O2 Sat by Pulse 100 92 92 Oximetry 12/01/20 12/01/20 12/01/20 09:00 09:11 09:21 Temperature Pulse Rate 107 H 111 H 124 H Pulse Rate [ From Monitor] Respiratory 16 23 26 H Rate Blood Pressure 168/62 168/62 147/68 O2 Sat by Pulse 88 93 92 Oximetry 12/01/20 12/01/20 12/01/20 09:27 09:28 09:30 Temperature Pulse Rate 128 H 128 H 129 H Pulse Rate [ From Monitor] Respiratory 18 Rate Blood Pressure 147/68 147/68 160/86 O2 Sat by Pulse 83 L Oximetry 12/01/20 12/01/20 12/01/20 09:41 09:50 10:00 Temperature Pulse Rate 134 H 129 H 130 H Pulse Rate [ From Monitor] Respiratory 25 H 18 26 H Rate Blood Pressure 160/86 185/74 185/74 O2 Sat by Pulse 95 92 94 Oximetry 12/01/20 12/01/20 12/01/20 10:10 10:30 10:45 Temperature Pulse Rate 112 H 99 H 96 H Pulse Rate [ From Monitor] Respiratory 22 17 21 Rate Blood Pressure 185/74 168/54 157/67 O2 Sat by Pulse 91 91 92 Oximetry 12/01/20 12/01/20 12/01/20 11:00 11:15 11:30 Temperature Pulse Rate 93 H 92 H 106 H Pulse Rate [ From Monitor] Respiratory 22 20 20 Rate Blood Pressure 154/58 167/65 172/73 O2 Sat by Pulse 93 88 95 Oximetry 12/01/20 12/01/20 12/01/20 11:46 12:00 12:10 Temperature 98.2 F Pulse Rate 96 H 96 H Pulse Rate [ 92 H From Monitor] Respiratory 15 24 Rate Blood Pressure 172/73 132/60 O2 Sat by Pulse 93 91 Oximetry 12/01/20 12/01/20 12/01/20 12:16 12:30 12:46 Temperature Pulse Rate 93 H 92 H 102 H Pulse Rate [ From Monitor] Respiratory 15 21 26 H Rate Blood Pressure 132/60 136/56 132/60 O2 Sat by Pulse 92 90 92 Oximetry 12/01/20 12/01/20 12/01/20 13:00 13:16 13:30 Temperature Pulse Rate 102 H 95 H 113 H Pulse Rate [ From Monitor] Respiratory 27 H 21 18 Rate Blood Pressure 137/54 137/54 176/69 O2 Sat by Pulse 92 91 93 Oximetry 12/01/20 12/01/20 12/01/20 13:32 13:46 14:00 Temperature Pulse Rate 105 H 98 H 99 H Pulse Rate [ From Monitor] Respiratory 26 H 26 H Rate Blood Pressure 176/69 137/54 124/46 O2 Sat by Pulse 90 88 Oximetry 12/01/20 15:22 Temperature 98.4 F Pulse Rate Pulse Rate [ From Monitor] Respiratory Rate Blood Pressure O2 Sat by Pulse Oximetry - Labs CBC & Chem 7: 12/02/20 08:57 12/02/20 08:57 Labs: Abnormal lab results 11/30/20 11/30/20 12/01/20 Range/Units 16:51 20:37 04:46 RBC 3.50 L (3.65-5.03) M/mm3 Hgb 10.8 L (11.8-15.2) gm/dl Hct 31.6 L (35.5-45.6) % RDW 20.0 H (13.2-15.2) % Lymph % (Auto) 7.6 L (13.4-35.0) % [place] % (Auto) 11.2 H (0.0-7.3) % Lymph # (Auto) 0.8 L (1.2-5.4) K/mm3 [place] # (Auto) 1.1 H (0.0-0.8) K/mm3 Seg Neutrophils % 80.9 H (40.0-70.0) % Seg Neutrophils # 8.0 H (1.8-7.7) K/mm3 POC ABG pO2 77.8 L (83-108) mmHg ABG Hemoglobin 11.0 L (12.0-17.5) ABG Glucose 230 H (65-95) mg/dL Creatinine (0.8-1.3) mg/dL Glucose (75-100) mg/dL POC Glucose (70-105) mg/dL Lactic Acid 2.30 H* (0.7-2.0) mmol/L Arterial Blood Glucose 230 H (65-95) mg/dL 12/01/20 12/01/20 Range/Units 04:46 11:45 RBC (3.65-5.03) M/mm3 Hgb (11.8-15.2) gm/dl Hct (35.5-45.6) % RDW (13.2-15.2) % Lymph % (Auto) (13.4-35.0) % [place] % (Auto) (0.0-7.3) % Lymph # (Auto) (1.2-5.4) K/mm3 [place] # (Auto) (0.0-0.8) K/mm3 Seg Neutrophils % (40.0-70.0) % Seg Neutrophils # (1.8-7.7) K/mm3 POC ABG pO2 (83-108) mmHg ABG Hemoglobin (12.0-17.5) ABG Glucose (65-95) mg/dL Creatinine 4.1 H (0.8-1.3) mg/dL Glucose 110 H (75-100) mg/dL POC Glucose 146 H (70-105) mg/dL Lactic Acid (0.7-2.0) mmol/L Arterial Blood Glucose (65-95) mg/dL HEART Score - HEART Score Troponin: Troponin T TNR 11/30/20 10:47
[2020-12-01] MEDS ORDERED: ONDANSETRON 4 MG/2 ML INJ IV PRN (16:48)
[2020-12-01] MEDS: PANTOPRAZOLE 40 MG TAB PO SCH (17:14)
--- NOTE | 2020-12-01 18:08 | Consultation ---
History of Present Illness Consult date: 12/01/20 Requesting physician: YAMEL MOLINA Reason for consult: other (Acute Hypoxemic Respiratory Failure; HTNsive Emergency) History of present illness: PULMONARY/CCM CONSULT NOTE (Full dictation # [id number]) Please see dictated notes for full details Past History Past Medical History: acute [place], ESRD, heart failure, hypertension Past Surgical History: Other (Fistula repair, cerebral aneurysm) Social history: single. denies: smoking, alcohol abuse, prescription drug abuse Family history: diabetes, hypertension Medications and Allergies Allergies Allergy/AdvReac Type Severity Reaction Status Date / Time No Known Allergies Allergy Verified 03/26/13 02:01 Home Medications Medication Instructions Recorded Confirmed Last Taken Type Aspirin 81 mg PO DAILY 05/25/18 05/25/18 Unknown History Atorvastatin Calcium 80 mg PO DAILY 05/25/18 05/25/18 Unknown History Clopidogrel [Plavix] 75 mg PO QDAY 05/25/18 05/25/18 Unknown History Furosemide [Lasix TAB] 40 mg PO QDAY 05/25/18 05/25/18 Unknown History Hydralazine HCl 50 mg PO TID 05/25/18 05/25/18 Unknown History Metoprolol Tartrate 25 mg PO BID 05/25/18 05/25/18 Unknown History Tamsulosin [Flomax] 0.4 mg PO QDAY 05/25/18 05/25/18 Unknown History amLODIPine 10 mg PO DAILY 05/25/18 05/25/18 05/24/18 09:00 History lisinopriL [Zestril TAB] 10 mg PO QDAY 05/25/18 05/25/18 Unknown History Albuterol Sulfate [Ventolin Hfa] 18 gm IH PRN #1 hfa.[id number].[id number] 05/28/18 Unknown Rx Ipratropium/Albuterol Sulfate 1 ampul IH Q8HR #90 ampul.neb 05/28/18 Unknown Rx [DUONEB *Not for PRN Use*] Prednisone [predniSONE 5 mg (6-Day 5 mg PO .TAPER #1 tab.ds.pk 05/28/18 Unknown Rx Pack, 21 Tabs)] Active Meds: Active Medications Albuterol (Albuterol 2.5 Mg/3 Ml Nebu) 2.5 mg IH Q3HRT PRN PRN Reason: Shortness Of Breath Amlodipine Besylate (Amlodipine 10 Mg Tab) 10 mg PO DAILY [facility] Last Admin: 12/01/20 09:27 Dose: 10 mg Documented by: Aspirin (Aspirin 81 Mg Tab Chew) 81 mg PO DAILY [facility] Last Admin: 12/01/20 09:27 Dose: 81 mg Documented by: Atorvastatin Calcium (Atorvastatin 40 Mg Tab) 80 mg PO QHS [facility] Last Admin: 11/30/20 21:14 Dose: 80 mg Documented by: Clopidogrel Bisulfate (Clopidogrel 75 Mg Tab) 75 mg PO QDAY [facility] Last Admin: 12/01/20 09:27 Dose: 75 mg Documented by: Furosemide (Furosemide 40 Mg Tab) 40 mg PO QDAY [facility] Last Admin: 12/01/20 09:27 Dose: 40 mg Documented by: Heparin Sodium (Porcine) (Heparin 5,000 Unit/1 Ml Vial) 5,000 unit SUB-Q Q12HR [facility] Hydralazine HCl (Hydralazine 100 Mg Tab) 100 mg PO TID [facility] Nitroglycerin/Dextrose (Tridil Drip 50mg/250ml) 50 mg in 250 mls @ 3 mls/hr IV TITR ONE; Protocol Stop: 12/03/20 22:07 Last Titration: 11/30/20 19:05 Dose: 0 mcg/min, 0 mls/hr Documented by: Sodium Chloride (Nacl 0.9%) 100 mls @ 999 mls/hr IV LIO PRN PRN Reason: Hypotension Nicardipine HCl 40 mg/ Sodium (Chloride) 250 mls @ 31.25 mls/hr IV TITR [facility]; Protocol Last Titration: 12/01/20 16:11 Dose: 0 mg/hr, 0 mls/hr Documented by: Sodium Chloride (Nacl 0.9%) 100 mls @ 999 mls/hr IV LIO PRN PRN Reason: Hypotension Lisinopril (Lisinopril 10 Mg Tab) 10 mg PO QDAY [facility] Last Admin: 12/01/20 09:27 Dose: 10 mg Documented by: Metoprolol Tartrate (Metoprolol Tartrate 100 Mg Tab) 100 mg PO BID [facility] Ondansetron HCl (Ondansetron 4 Mg/2 Ml Inj) 4 mg IV Q8H PRN PRN Reason: Nausea And Vomiting Last Admin: 12/01/20 17:14 Dose: 4 mg Documented by: Pantoprazole Sodium (Pantoprazole 40 Mg Tab) 40 mg PO QDAC [facility] Last Admin: 12/01/20 17:14 Dose: 40 mg Documented by: Sodium Chloride (Sodium Chloride 0.9% 10 Ml Flush Syringe) 10 ml IV BID [facility] Last Admin: 12/01/20 09:29 Dose: 10 ml Documented by: Sodium Chloride (Sodium Chloride 0.9% 10 Ml Flush Syringe) 10 ml IV PRN PRN PRN Reason: LINE FLUSH Tamsulosin HCl (Tamsulosin 0.4 Mg Cap) 0.4 mg PO QDAY [facility] Last Admin: 12/01/20 09:27 Dose: 0.4 mg Documented by: Physical Examination Vital signs: Vital Signs Pulse Resp Pulse Ox 180 H 36 H 100 11/30/20 10:40 11/30/20 10:40 11/30/20 10:40 Results - Laboratory Findings CBC and BMP: 12/01/20 04:46 12/01/20 04:46 ABG ABG pH 7.401 (7.320-7.450) 11/30/20 20:37 POC ABG pCO2 38.0 mmHg (32.0-48.0) 11/30/20 20:37 POC ABG pO2 77.8 mmHg (83-108) L 11/30/20 20:37 POC ABG HCO3 23.1 11/30/20 20:37 ABG O2 Saturation 95.3 (0-100) 11/30/20 20:37 PT/INR, D-dimer PT 12.8 Sec. (12.2-14.9) 11/30/20 10:47 INR 0.90 (0.87-1.13) 11/30/20 10:47 Abnormal lab findings: Abnormal Labs 11/30/20 11/30/20 11/30/20 13:28 13:28 16:51 WBC RBC Hgb Hct RDW Lymph % (Auto) [place] % (Auto) Baso % (Auto) Lymph # (Auto) [place] # (Auto) Baso # (Auto) Seg Neutrophils % Seg Neutrophils # POC ABG pO2 ABG Hemoglobin ABG Glucose VBG pH 7.283 L BUN Creatinine Glucose POC Glucose Lactic Acid 3.00 H* 2.30 H* Arterial Blood Glucose 11/30/20 11/30/20 11/30/20 20:37 Unknown Unknown WBC 13.9 H RBC Hgb Hct RDW 20.3 H Lymph % (Auto) [place] % (Auto) Baso % (Auto) 2.7 H Lymph # (Auto) [place] # (Auto) 1.0 H Baso # (Auto) 0.4 H Seg Neutrophils % 70.4 H Seg Neutrophils # 9.8 H POC ABG pO2 77.8 L ABG Hemoglobin 11.0 L ABG Glucose 230 H VBG pH BUN 30 H Creatinine 8.2 H Glucose 217 H POC Glucose Lactic Acid Arterial Blood Glucose 230 H 12/01/20 12/01/20 12/01/20 04:46 04:46 11:45 WBC RBC 3.50 L Hgb 10.8 L Hct 31.6 L RDW 20.0 H Lymph % (Auto) 7.6 L [place] % (Auto) 11.2 H Baso % (Auto) Lymph # (Auto) 0.8 L [place] # (Auto) 1.1 H Baso # (Auto) Seg Neutrophils % 80.9 H Seg Neutrophils # 8.0 H POC ABG pO2 ABG Hemoglobin ABG Glucose VBG pH BUN Creatinine 4.1 H Glucose 110 H POC Glucose 146 H Lactic Acid Arterial Blood Glucose
[2020-12-01] MEDS: hydrALAZINE 100 MG TAB PO SCH (20:32)
[2020-12-01] MEDS: METOPROLOL TARTRATE 100 MG TAB PO SCH (22:41)
[2020-12-01] MEDS: HEPARIN 5,000 UNIT/1 ML VIAL SUB-Q SCH (22:42)
--- NOTE | 2020-12-02 00:28 | Consultation ---
DATE OF CONSULTATION: 12/01/2020 PULMONARY CRITICAL CARE CONSULT NOTE CONSULTING PHYSICIAN: Dr. Doe Cruz. REASON FOR CONSULTATION: Acute hypoxemic respiratory failure on noninvasive ventilation, end-stage renal disease on dialysis. CHIEF COMPLAINT/HISTORY OF PRESENT ILLNESS: The patient is a now 60-year-old male with past medical history significant for a diagnosis of end-stage renal disease, on hemodialysis, I believe Thursday, , Thursday, who denied missing any dialysis sessions, underwent dialysis the day before presentation, came into the Emergency Room complaining of trouble getting air in and out. He had a cough at that time. He denied any gross or streaky hemoptysis. He denied fevers or chills. He denied any chest pain or palpitations. In the Emergency Room, he was found to be in significant respiratory distress. However, blood pressure revealed a blood pressure of 263/162. He required noninvasive ventilation therapy to oxygenate and ventilate well. ICU admission was requested and he was offered. The patient was also started on a nitroglycerin drip. When I stopped by to see him, he was feeling a little bit better. Dialysis was going on. He was on with a plan to pull 3.5 kilograms with ultrafiltration I should say. He remained on noninvasive ventilation therapy and was about to be taken off of the therapy. He denied any nausea or vomiting. He denied any sick contacts. He denied any new-onset leg pain or swelling, either unilaterally or bilaterally. He denies any known COVID-19 exposures. This really is as much of the history of presentation as I have. PAST MEDICAL HISTORY: End-stage renal disease, on dialysis, hypertension, coronary artery disease, congestive heart failure, history of asthma. PAST SURGICAL HISTORY: He has had an AV fistula repair and cerebral aneurysm clipping. MEDICATIONS: He was on at the time I stopped by to see him, according to the medication administration record included the following: Albuterol 2.5 mg nebulized q. 3 hours p.r.n. shortness of breath, amlodipine 10 mg p.o. daily, aspirin 81 mg p.o. daily, Lipitor 80 mg p.o. at bedtime, Plavix 75 mg p.o. daily, Lasix 40 mg p.o. daily, heparin 5000 units subQ q. 12 hours, hydralazine 100 mg p.o. t.i.d. , Zestril 10 mg p.o. daily, metoprolol 100 mg p.o. b.i.d., nicardipine drip had been going at 5 mg per hour, Tridil drip at 10 mcg per minute, Zofran 4 mg IV q. 8 hours p.r.n. nausea and vomiting, Protonix 40 mg p.o. daily, Flomax 0.4 mg p.o. daily. ALLERGIES: No known drug allergies. DIET: Well built gentleman. Denies acute weight loss or gain in the preceding few weeks to months. FAMILY AND SOCIAL HISTORY: Lives in the community. Denies current alcohol, tobacco, illicit drug use or abuse. FAMILY HISTORY: There is a family history of hypertension. REVIEW OF SYSTEMS: Denies any loss of consciousness. No new onset seizures. No new onset focal weakness. Denies gross hematochezia or melena. Denies gross hematuria or dysuria. He denied chest pains. He denies heat or cold intolerance. Denied polydipsia or polyuria. Complete review of system was obtained. Pertinent positives and/or negatives as in body of history above, otherwise noncontributory. PHYSICAL EXAMINATION: VITAL SIGNS: At presentation in the Emergency Room and since really he was afebrile, first temperature recorded was 98.1, pulse at admission 180, respiratory rate 36, blood pressure 263/162, O2 sats 100%, inspired oxygen concentration at that time was I believe 100% FiO2. He was on bilevel positive airway pressure ventilation therapy, IPAP of 16, EPAP of 8. With a backup rate initially of about 20. GENERAL: He is an elderly looking male. Normocephalic, atraumatic, lying in bed with mildly increased respiratory effort at rest. HEENT: Anicteric, no conjunctival erythema. Oropharynx was moist. NECK: No gross jugular venous distention, no thyromegaly. Grossly, there were no palpable lymph nodes in the supraclavicular or submandibular lymph node chains. LUNGS: Auscultation of both lung spencer revealed diminished bilateral breath sounds, prolonged expiratory phase, faint inspiratory rhonchi, no wheezing. HEART: Sounds 1 and 2 are heard at the time of my evaluation, regular rate and rhythm without overt rubs or murmurs. ABDOMEN: Soft, full, bowel sounds are positive, nontender, no palpable hepatosplenomegaly. EXTREMITIES: Without overt digital clubbing or cyanosis, no pedal edema. Pedal pulses are 2+ bilaterally. NEUROLOGIC: Pupils are equal, round, reactive to light, about 4 mm. Extraocular muscle movements are intact. He moves all 4 extremities spontaneously. SKIN: Normal turgor without overt cellulitis or rash in the areas I examined. Please see the wound care nurses' notes for full description of his skin. PSYCHIATRIC: Mood was normal. Affect was slightly anxious. He had intact judgment and insight. LABORATORY DATA: From my review are as follows: Admission white cell count 13,900, hemoglobin 12.0, hematocrit 36.5, platelet count 239. INR was 0.9. Arterial blood gas showed a pH of 7.40, pCO2 of 38, pO2 of 78 on 40% FiO2 I believe at that time. Serum sodium 143, potassium 3.9, chloride 100, bicarbonate 26, BUN 30, creatinine 8.2, glucose 217. Liver function tests otherwise within normal limits. Hepatitis screen was negative. Coronavirus PCR was negative. Two sets of blood cultures, no growth to date. Chest x-ray shows hyperinflation, COPD, gross cardiomegaly, increased interstitial markings bilaterally, both in chronic and acute looking distribution with some cephalization, no gross pneumothorax, perhaps a small left pleural effusion. No gross bony fracture. ASSESSMENT: 1. Acute hypoxemic respiratory failure, on noninvasive ventilation therapy continuous. 2. Hypertensive emergency. 3. End-stage renal disease, on dialysis. 4. Mild pulmonary edema. 5. History of coronary artery disease. 6. History of congestive heart failure. 7. History of asthma. 8. Mild leukocytosis. 9. Lactic acidosis. PLAN: We will liberate him from noninvasive ventilation therapy at this time. We will use it p.r.n. for shortness of breath or wheezing. Oxygen will be weaned to keep sats greater than or equal to about 90%. Aspiration precautions will be maintained. Oral antihypertensive medications have been instituted. He has had episodes of nausea and vomiting earlier, but feeling much better now. Really no acute indication for broad-spectrum antibiotics in my opinion. I will, however, get a procalcitonin level just to help me guide clinical decision making. Continued tobacco abstinence has been counseled. Continued compliance with his dialysis has been recommended. I will defer to the medical file clerk in terms of hemodialysis decisions. I do agree with ultrafiltration. Bronchodilators routine pulmonary hygiene will be per the respiratory therapy, oral nutrition will be the feeding modality of choice. Aspiration precautions will be maintained. I will defer management of chronic disease medications to the attending physician. He is appropriately on GI prophylaxis as well as DVT prophylaxis. Flu and pneumonia vaccination will be addressed per protocol. I should mention he has been weaned off the Tridil and Cardene drips right now. The Tridil and Cardene drips initial target - systolic blood pressure will be for about 150-160 mmHg. We will follow along and make further recommendations as picture progresses/becomes clearer. He is critically ill, on life-sustaining interventions including continuous noninvasive ventilation and vasoactive medications at risk of from cardiopulmonary system decompensation. Again, I spent 35-40 minutes of critical care time without overlap and excluding any procedural time that may be necessary. Thank you very much for the consult. TID: [id number] RECEIPT: [id number] LUCREO/DK
[2020-12-02] MEDS: hydrALAZINE 100 MG TAB PO SCH ×4 (06:01→22:07)
[2020-12-02] MEDS: ONDANSETRON 4 MG/2 ML INJ IV PRN ×3 (06:03→19:10)
[2020-12-02] MEDS: PANTOPRAZOLE 40 MG TAB PO SCH (07:27)
[2020-12-02] MEDS: ASPIRIN 81 MG TAB CHEW PO SCH (09:16)
[2020-12-02] MEDS: CLOPIDOGREL 75 MG TAB PO SCH (09:17)
[2020-12-02] MEDS: LISINOPRIL 10 MG TAB PO SCH (09:17)
[2020-12-02] MEDS: METOPROLOL TARTRATE 100 MG TAB PO SCH ×2 (09:17→22:07)
[2020-12-02] MEDS: FUROSEMIDE 40 MG TAB PO SCH (09:18)
--- NOTE | 2020-12-02 09:20 | Progress Note ---
Assessment and Plan 1. ESRD: Patient is on maintenance hemodialysis three times a week, TTS schedule. Last outpatient HD 11/29. Meds dosage based on GFR. Hemodialysis: 11/30, 12/01. 2. FEN: Volume overload, improved with HD. Renal diet. Monitor lytes and volume status. 3. Acute hypoxic resp failure: 2/2 volume overload. Covid negative. UF with HD. Improving. 4. Hypertensive urgency: Was on Nitro drip. Adjust meds as appropriate. UF with HD. Monitor BP. 5. Anemia, POA: 2/2 ESRD. Epogen as needed. 6. DM type 2: SSI. Monitor. 7. Medical compliance issues: Patient frequently refuses UF with HD. Compliance encouraged. Subjective: Patient was seen and examined at the bedside. Doing better. General Appearance: General appearance: well-developed, appears stated age, not in distress HEENT: ATNC, pupils equal Neck: trachea midline Respiratory: ctab Heart: regular, S1S2, no murmur Abdomen: soft, bowel sounds heard, not tender Integumentary: no rash, warm and dry Neurologic: AO, able to move extremities Ext: no edema Hemodialysis access: L arm AVF Subjective Date of service: 12/02/20 Objective - Vital Signs Vital signs: Vital Signs - 12hr 12/01/20 12/01/20 12/01/20 21:25 21:30 21:45 Temperature 98.1 F Pulse Rate 110 H 106 H 104 H Pulse Rate [ From Monitor] Respiratory 18 23 19 Rate Blood Pressure 138/75 152/62 138/57 O2 Sat by Pulse 91 91 Oximetry 12/01/20 12/01/20 12/01/20 22:00 22:17 22:30 Temperature Pulse Rate 103 H 104 H 104 H Pulse Rate [ From Monitor] Respiratory 12 17 16 Rate Blood Pressure 137/59 O2 Sat by Pulse 93 86 Oximetry 12/01/20 12/01/20 12/01/20 22:41 22:45 23:00 Temperature Pulse Rate 104 H 102 H 102 H Pulse Rate [ From Monitor] Respiratory 17 17 Rate Blood Pressure 153/63 133/54 160/72 O2 Sat by Pulse 99 99 Oximetry 12/01/20 12/01/20 12/01/20 23:15 23:30 23:46 Temperature Pulse Rate 101 H 101 H 108 H Pulse Rate [ From Monitor] Respiratory 17 17 15 Rate Blood Pressure 152/65 155/69 146/66 O2 Sat by Pulse 99 98 99 Oximetry 12/02/20 12/02/20 12/02/20 00:00 00:16 00:30 Temperature 98.8 F Pulse Rate 115 H 106 H 104 H Pulse Rate [ From Monitor] Respiratory 16 16 20 Rate Blood Pressure 154/59 146/66 146/66 O2 Sat by Pulse 98 99 98 Oximetry 12/02/20 12/02/20 12/02/20 00:46 01:00 01:16 Temperature Pulse Rate 102 H 100 H 97 H Pulse Rate [ From Monitor] Respiratory 17 17 16 Rate Blood Pressure 146/66 178/55 178/55 O2 Sat by Pulse 98 99 100 Oximetry 12/02/20 12/02/20 12/02/20 01:30 01:46 02:00 Temperature Pulse Rate 99 H 94 H 93 H Pulse Rate [ From Monitor] Respiratory 18 18 19 Rate Blood Pressure 178/55 178/55 144/66 O2 Sat by Pulse 98 99 100 Oximetry 12/02/20 12/02/20 12/02/20 02:30 03:00 03:30 Temperature Pulse Rate 90 88 87 Pulse Rate [ From Monitor] Respiratory 17 19 26 H Rate Blood Pressure 178/55 154/64 154/64 O2 Sat by Pulse 99 99 100 Oximetry 12/02/20 12/02/20 12/02/20 04:00 04:30 04:35 Temperature 98.9 F Pulse Rate 88 86 86 Pulse Rate [ 88 From Monitor] Respiratory 19 18 Rate Blood Pressure 154/64 175/70 O2 Sat by Pulse 99 98 Oximetry 12/02/20 12/02/20 12/02/20 05:00 05:30 06:00 Temperature Pulse Rate 85 84 84 Pulse Rate [ From Monitor] Respiratory 19 19 19 Rate Blood Pressure 184/68 184/68 176/59 O2 Sat by Pulse 98 99 97 Oximetry 12/02/20 12/02/20 12/02/20 06:30 07:00 07:23 Temperature 99.2 F Pulse Rate 85 84 Pulse Rate [ From Monitor] Respiratory 29 H 18 Rate Blood Pressure 176/59 161/60 O2 Sat by Pulse 98 99 Oximetry 12/02/20 09:17 Temperature Pulse Rate 85 Pulse Rate [ From Monitor] Respiratory Rate Blood Pressure 128/54 O2 Sat by Pulse Oximetry - Lab 12/02/20 08:57 12/02/20 08:57 Most recent lab results ABG pH 7.401 (7.320-7.450) 11/30/20 20:37 ABG O2 Saturation 95.3 (0-100) 11/30/20 20:37 Calcium 9.6 mg/dL (8.4-10.2) 12/01/20 04:46 Medications & Allergies - Medications Allergies/Adverse Reactions: Allergies No Known Allergies Allergy (Verified 03/26/13 02:01) Home Medications: Home Medications Medication Instructions Recorded Confirmed Last Taken Type Aspirin 81 mg PO DAILY 05/25/18 12/02/20 11/29/20 History Furosemide [Lasix TAB] 40 mg PO QDAY 05/25/18 12/02/20 11/29/20 History Hydralazine HCl 50 mg PO TID 05/25/18 12/02/20 11/29/20 History Metoprolol Tartrate 25 mg PO BID 05/25/18 12/02/20 11/29/20 History Tamsulosin [Flomax] 0.4 mg PO QDAY 05/25/18 12/02/20 11/29/20 History amLODIPine 10 mg PO DAILY 05/25/18 12/02/20 11/29/20 History Albuterol Sulfate [Ventolin Hfa] 18 gm IH PRN #1 hfa.aer.ad 05/28/18 12/02/20 11/29/20 Rx Rosuvastatin Calcium [Crestor] 10 mg PO QDAY 12/02/20 12/02/20 11/29/20 History cloNIDine [Catapres] 0.2 mg PO QDAY 12/02/20 12/02/20 11/29/20 History Active Medications: Generic Name Dose Route Start Last Admin Trade Name Freq PRN Reason Stop Dose Admin Albuterol 2.5 mg 11/30/20 17:00 Albuterol 2.5 Mg/3 Ml Nebu IH Q3HRT PRN Shortness Of Breath Amlodipine Besylate 10 mg 11/30/20 17:00 12/01/20 09:27 Amlodipine 10 Mg Tab PO 10 mg DAILY MAILE Administration Aspirin 81 mg 11/30/20 17:00 12/02/20 09:16 Aspirin 81 Mg Tab Chew PO 81 mg DAILY MAILE Administration Atorvastatin Calcium 80 mg 11/30/20 22:00 12/01/20 22:42 Atorvastatin 40 Mg Tab PO 80 mg QHS MAILE Administration Clopidogrel Bisulfate 75 mg 12/01/20 10:00 12/02/20 09:17 Clopidogrel 75 Mg Tab PO 75 mg QDAY MAILE Administration Furosemide 40 mg 11/30/20 17:00 12/02/20 09:18 Furosemide 40 Mg Tab PO 40 mg QDAY MAILE Administration Heparin Sodium (Porcine) 5,000 unit 12/01/20 22:00 12/01/20 22:42 Heparin 5,000 Unit/1 Ml Vial SUB-Q 5,000 unit Q12HR MAILE Administration Hydralazine HCl 100 mg 12/01/20 20:00 12/02/20 07:27 Hydralazine 100 Mg Tab PO Not Given TID [facility] Nitroglycerin/Dextrose 50 mg in 250 mls @ 3 mls/hr 11/30/20 10:48 11/30/20 19:05 Tridil Drip 50mg/250ml IV 12/03/20 22:07 0 mcg/min TITR ONE 0 mls/hr Titration Protocol 10 MCG/MIN Sodium Chloride 100 mls @ 999 mls/hr 11/30/20 20:36 Nacl 0.9% IV LIO PRN Hypotension Nicardipine HCl 40 mg/ Sodium 250 mls @ 31.25 mls/hr 12/01/20 05:00 12/01/20 16:11 Chloride IV 0 mg/hr TITR MAILE 0 mls/hr Titration Protocol 5 MG/HR Sodium Chloride 100 mls @ 999 mls/hr 12/01/20 10:08 Nacl 0.9% IV LIO PRN Hypotension Lisinopril 10 mg 12/01/20 10:00 12/02/20 09:17 Lisinopril 10 Mg Tab PO 10 mg QDAY [facility] Administration Metoprolol Tartrate 100 mg 12/01/20 22:00 12/02/20 09:17 Metoprolol Tartrate 100 Mg Tab PO 100 mg BID MAILE Administration Ondansetron HCl 4 mg 12/01/20 22:45 12/02/20 06:03 Ondansetron 4 Mg/2 Ml Inj IV 4 mg Q6H PRN Administration Nausea And Vomiting Pantoprazole Sodium 40 mg 12/01/20 18:00 12/02/20 07:27 Pantoprazole 40 Mg Tab PO 40 mg QDAC MAILE Administration Sodium Chloride 10 ml 11/30/20 22:00 12/01/20 22:42 Sodium Chloride 0.9% 10 Ml Flush Syringe IV 10 ml BID MAILE Administration Sodium Chloride 10 ml 11/30/20 17:00 Sodium Chloride 0.9% 10 Ml Flush Syringe IV PRN PRN LINE FLUSH Tamsulosin HCl 0.4 mg 12/01/20 10:00 12/01/20 09:27 Tamsulosin 0.4 Mg Cap PO 0.4 mg QDAY MAILE Administration
[2020-12-02] MEDS: TAMSULOSIN 0.4 MG CAP PO SCH (09:23)
[2020-12-02] MEDS: HEPARIN 5,000 UNIT/1 ML VIAL SUB-Q SCH ×2 (09:24→22:08)
[2020-12-02] MEDS: amLODIPine 10 MG TAB PO SCH (09:24)
[2020-12-02 09:56] LABS: Basophils # (Auto) 0.1 K/mm3 (0.0-0.1); Basophils % (Auto) 0.5 % (0.0-1.8); Eosinophils # (Auto) 0.1 K/mm3 (0.0-0.4); Eosinophils % (Auto) 0.9 % (0.0-4.3); Hematocrit 36.2 % (35.5-45.6); Hemoglobin 12.1 gm/dl (11.8-15.2); Lymphocytes # (Auto) 1.2 K/mm3 (1.2-5.4); Lymphocytes % (Auto) 9.2 % (13.4-35.0); Mean Corpuscular HGB Conc 33 % (32-34); Mean Corpuscular Volume 91 fl (84-94); Monocytes # (Auto) 1.3 K/mm3 (0.0-0.8); Monocytes % (Auto) 9.7 % (0.0-7.3); Platelet Count 227 K/mm3 (140-440); Red Blood Count 3.97 M/mm3 (3.65-5.03)
[2020-12-02 10:05] LABS: Red Cell Distribution Width 20.8 % (13.2-15.2)
[2020-12-02 10:38] LABS: Calcium 9.8 mg/dL (8.4-10.2)
--- NOTE | 2020-12-02 15:15 | Progress Note ---
Assessment and Plan -- Acute respiratory failure with hypoxia Likely due to volume overload from end-stage renal disease Patient treated with noninvasive positive pressure ventilation, Continue supplemental oxygen, hemodialysis as needed, supportive care -- Hypertensive emergency Patient initially initiated on nitro drip then changed to Cardene drip. Cardene drip now weaned off, continue to adjust oral medications for better BP control -- End stage renal disease Nephrology team consulted in ED, dialysis as per renal team. Avoid nephrotoxic agents -- Metabolic acidosis Follow BMP, IV bicarbonate therapy as clinically indicated, dialysis as per renal team. --DVT prophylaxis SCDs bilateral lower extremities while in bed, patient is ambulatory --Full CODE STATUS Daily clinical care: 12/01/20: Patient received emergent hemodialysis, remains on Cardene drip for uncontrolled blood pressure. Weaned off from BiPAP and currently on nasal cannula. Will transfer to [facility], wean off from Cardene drip as tolerated. 12/02/20; BP significantly improved, weaned off from Cardene drip. Patient remains on nasal cannula O2. Plan for hemodialysis tomorrow. Will assess oxygen requirement after hemodialysis tomorrow. Continue to monitor for now. Subjective Date of service: 12/02/20 Interval history: Patient seen and examined. Medical records and medication list reviewed. No acute event overnight noted by the RN. BP improved, patient remains on nasal cannula O2 Discussed plan of care at bedside with patient. Objective - Exam Narrative Exam: GENERAL: well-developed elderly -Swiss male lying on bed appeared to be in no discomfort. HEENT: Normocephalic. Atraumatic. No conjunctival congestion or icterus. Patient has moist mucous membranes. NECK: Supple. Trachea midline. CHEST/LUNGS: Clear to auscultated bilaterally, breathing nonlabored with nasal cannula O2. No wheezes crackles or rhonchi. HEART/CARDIOVASCULAR: Regular in rate and rhythm. S1 and S2 positive. ABDOMEN: Abdomen is soft, nontender. Patient has normal bowel sounds. SKIN: There is no rash. Warm and dry. NEURO: No focal motor deficit. Follows command. MUSCULOSKELETAL: No joint effusion or tenderness. EXTRIMITY: No edema, no cyanosis or clubbing. PSYCH: Cooperative. - Constitutional Vitals: Vital Signs - 12hr 12/02/20 12/02/20 12/02/20 03:30 04:00 04:30 Temperature 98.9 F Pulse Rate 87 88 86 Pulse Rate [ 88 From Monitor] Respiratory 26 H 19 18 Rate Blood Pressure 154/64 154/64 175/70 O2 Sat by Pulse 100 99 98 Oximetry 12/02/20 12/02/20 12/02/20 04:35 05:00 05:30 Temperature Pulse Rate 86 85 84 Pulse Rate [ From Monitor] Respiratory 19 19 Rate Blood Pressure 184/68 184/68 O2 Sat by Pulse 98 99 Oximetry 12/02/20 12/02/20 12/02/20 06:00 06:30 07:00 Temperature Pulse Rate 84 85 84 Pulse Rate [ From Monitor] Respiratory 19 29 H 18 Rate Blood Pressure 176/59 176/59 161/60 O2 Sat by Pulse 97 98 99 Oximetry 12/02/20 12/02/20 12/02/20 07:23 07:30 08:00 Temperature 99.2 F Pulse Rate 86 84 Pulse Rate [ From Monitor] Respiratory 18 17 Rate Blood Pressure 161/60 149/59 O2 Sat by Pulse 98 99 Oximetry 12/02/20 12/02/20 12/02/20 08:30 09:00 09:17 Temperature Pulse Rate 89 90 85 Pulse Rate [ From Monitor] Respiratory 21 18 Rate Blood Pressure 149/59 149/59 128/54 O2 Sat by Pulse 97 96 Oximetry 12/02/20 12/02/20 12/02/20 09:24 09:30 09:31 Temperature Pulse Rate 84 87 82 Pulse Rate [ From Monitor] Respiratory 21 Rate Blood Pressure 128/54 128/54 O2 Sat by Pulse 99 Oximetry 12/02/20 12/02/20 12/02/20 10:00 10:30 11:00 Temperature Pulse Rate 85 84 79 Pulse Rate [ From Monitor] Respiratory 22 18 17 Rate Blood Pressure 155/48 155/48 157/56 O2 Sat by Pulse 100 99 98 Oximetry 12/02/20 12/02/20 12/02/20 11:30 11:50 12:00 Temperature 99.3 F Pulse Rate 82 Pulse Rate [ From Monitor] Respiratory 24 Rate Blood Pressure 155/48 152/64 O2 Sat by Pulse 99 100 Oximetry 12/02/20 13:31 Temperature Pulse Rate 82 Pulse Rate [ From Monitor] Respiratory Rate Blood Pressure O2 Sat by Pulse Oximetry - Labs CBC & Chem 7: 12/02/20 08:57 12/02/20 08:57 Labs: Abnormal lab results 12/02/20 12/02/20 Range/Units 08:57 08:57 WBC 13.4 H (4.5-11.0) K/mm3 RDW 20.8 H (13.2-15.2) % Lymph % (Auto) 9.2 L (13.4-35.0) % [place] % (Auto) 9.7 H (0.0-7.3) % [place] # (Auto) 1.3 H (0.0-0.8) K/mm3 Seg Neutrophils % 79.7 H (40.0-70.0) % Seg Neutrophils # 10.7 H (1.8-7.7) K/mm3 Chloride 94.8 L (98-107) mmol/L Carbon Dioxide 35 H D (22-30) mmol/L BUN 23 H (9-20) mg/dL Creatinine 4.9 H (0.8-1.3) mg/dL Glucose 135 H (75-100) mg/dL HEART Score - HEART Score Troponin: Troponin T TNR 11/30/20 10:47
--- NOTE | 2020-12-02 17:27 | Progress Note ---
Assessment and Plan Acute hypoxemic respiratory failure Hypertensive emergency End-stage renal disease Mild pulmonary edema History of coronary artery disease History of congestive heart failure History of asthma Mild leukocytosis Lactic acidosis - prn supplemental oxygen to keep O2 sats > 90% - prn bronchodilators (MENDEZ) with pulm hygiene per RT - optimize oral antihypertensive medications - continue HD/UF per ID recommendations - continue to avoid nephrotoxins, renally dose all medications - continue mobility protocols to prevent pressure ulcers - PT/OT as tolerated - Wound care per RN/WCT - continue accuchecks with glycemic control per SSI for target blood glucose < 180 mg/dL - Smoking cessation strongly counseled at the bedside - home oxygen evaluation at discharge - GI & VTE prophylaxis - Flu & pneumovax per protocol - Pulmonary out patient follow up for PFTs and optimization of respiratory status - continue other care per attending / other consultants - prn analgesia per pain score ... re-evaluate in am & prn Subjective Date of service: 12/02/20 Principal diagnosis: Ac. hypoxemic resp failure; HTNsive emergency; ESRD; CAD; CHF; Asthma Interval history: Patient is seen today for: Acute hypoxemic respiratory failure; Hypertensive emergency; ESRD on Dialysis; pulmonary edema; CAD; CHF; Asthma Seen and examined at bedside; 24hour events reviewed; nursing and respiratory care staff consulted; no adverse overnight events reported to me; restring in bed; Objective Vital Signs - 12hr 12/02/20 12/02/20 12/02/20 05:30 06:00 06:30 Temperature Pulse Rate 84 84 85 Respiratory 19 19 29 H Rate Blood Pressure 184/68 176/59 176/59 O2 Sat by Pulse 99 97 98 Oximetry 12/02/20 12/02/20 12/02/20 07:00 07:23 07:30 Temperature 99.2 F Pulse Rate 84 86 Respiratory 18 18 Rate Blood Pressure 161/60 161/60 O2 Sat by Pulse 99 98 Oximetry 12/02/20 12/02/20 12/02/20 08:00 08:30 09:00 Temperature Pulse Rate 84 89 90 Respiratory 17 21 18 Rate Blood Pressure 149/59 149/59 149/59 O2 Sat by Pulse 99 97 96 Oximetry 12/02/20 12/02/20 12/02/20 09:17 09:24 09:30 Temperature Pulse Rate 85 84 87 Respiratory 21 Rate Blood Pressure 128/54 128/54 128/54 O2 Sat by Pulse 99 Oximetry 12/02/20 12/02/20 12/02/20 09:31 10:00 10:30 Temperature Pulse Rate 82 85 84 Respiratory 22 18 Rate Blood Pressure 155/48 155/48 O2 Sat by Pulse 100 99 Oximetry 12/02/20 12/02/20 12/02/20 11:00 11:30 11:50 Temperature 99.3 F Pulse Rate 79 82 Respiratory 17 24 Rate Blood Pressure 157/56 155/48 O2 Sat by Pulse 98 99 Oximetry 12/02/20 12/02/20 12/02/20 12:00 12:20 12:30 Temperature Pulse Rate Respiratory Rate Blood Pressure 152/64 152/64 152/64 O2 Sat by Pulse 100 99 100 Oximetry 12/02/20 12/02/20 12/02/20 12:40 12:50 13:00 Temperature Pulse Rate Respiratory Rate Blood Pressure 152/64 152/64 152/59 O2 Sat by Pulse 99 98 99 Oximetry 12/02/20 12/02/20 12/02/20 13:10 13:20 13:31 Temperature Pulse Rate 84 82 Respiratory 20 Rate Blood Pressure 152/59 152/59 O2 Sat by Pulse 99 99 Oximetry 12/02/20 12/02/20 16:19 17:00 Temperature 98.4 F Pulse Rate 81 82 Respiratory 19 Rate Blood Pressure 162/76 O2 Sat by Pulse 99 Oximetry CBC and BMP: 12/02/20 08:57 12/02/20 08:57 ABG, PT/INR, D-dimer: ABG ABG pH 7.401 (7.320-7.450) 11/30/20 20:37 POC ABG pCO2 38.0 mmHg (32.0-48.0) 11/30/20 20:37 POC ABG pO2 77.8 mmHg (83-108) L 11/30/20 20:37 POC ABG HCO3 23.1 11/30/20 20:37 ABG O2 Saturation 95.3 (0-100) 11/30/20 20:37 PT/INR, D-dimer PT 12.8 Sec. (12.2-14.9) 11/30/20 10:47 INR 0.90 (0.87-1.13) 11/30/20 10:47 Abnormal lab findings: Abnormal Labs 0611/30/20 11/30/20 13:28 13:28 16:51 WBC RBC Hgb Hct RDW Lymph % (Auto) [place] % (Auto) Baso % (Auto) Lymph # (Auto) [place] # (Auto) Baso # (Auto) Seg Neutrophils % Seg Neutrophils # POC ABG pO2 ABG Hemoglobin ABG Glucose VBG pH 7.283 L Chloride Carbon Dioxide BUN Creatinine Glucose POC Glucose Lactic Acid 3.00 H* 2.30 H* Arterial Blood Glucose 11/30/20 11/30/20 11/30/20 20:37 Unknown Unknown WBC 13.9 H RBC Hgb Hct RDW 20.3 H Lymph % (Auto) [place] % (Auto) Baso % (Auto) 2.7 H Lymph # (Auto) [place] # (Auto) 1.0 H Baso # (Auto) 0.4 H Seg Neutrophils % 70.4 H Seg Neutrophils # 9.8 H POC ABG pO2 77.8 L ABG Hemoglobin 11.0 L ABG Glucose 230 H VBG pH Chloride Carbon Dioxide BUN 30 H Creatinine 8.2 H Glucose 217 H POC Glucose Lactic Acid Arterial Blood Glucose 230 H 12/01/20 12/01/20 12/01/20 04:46 04:46 11:45 WBC RBC 3.50 L Hgb 10.8 L Hct 31.6 L RDW 20.0 H Lymph % (Auto) 7.6 L [place] % (Auto) 11.2 H Baso % (Auto) Lymph # (Auto) 0.8 L [place] # (Auto) 1.1 H Baso # (Auto) Seg Neutrophils % 80.9 H Seg Neutrophils # 8.0 H POC ABG pO2 ABG Hemoglobin ABG Glucose VBG pH Chloride Carbon Dioxide BUN Creatinine 4.1 H Glucose 110 H POC Glucose 146 H Lactic Acid Arterial Blood Glucose 12/02/20 12/02/20 08:57 08:57 WBC 13.4 H RBC Hgb Hct RDW 20.8 H Lymph % (Auto) 9.2 L [place] % (Auto) 9.7 H Baso % (Auto) Lymph # (Auto) [place] # (Auto) 1.3 H Baso # (Auto) Seg Neutrophils % 79.7 H Seg Neutrophils # 10.7 H POC ABG pO2 ABG Hemoglobin ABG Glucose VBG pH Chloride 94.8 L Carbon Dioxide 35 H D BUN 23 H Creatinine 4.9 H Glucose 135 H POC Glucose Lactic Acid Arterial Blood Glucose
--- NOTE | 2020-12-03 08:33 | Progress Note ---
Assessment and Plan 1. ESRD: Patient is on maintenance hemodialysis three times a week, TTS schedule. Last outpatient HD 11/29. Meds dosage based on GFR. Hemodialysis: 11/30, 12/01. 2. FEN: Volume overload, improved with HD. Renal diet. Monitor lytes and volume status. 3. Acute hypoxic resp failure: 2/2 volume overload. Covid negative. UF with HD. Improving. 4. Hypertensive urgency: Was on Nitro drip. Adjust meds as appropriate. UF with HD. Monitor BP. 5. Anemia, POA: 2/2 ESRD. Epogen as needed. 6. DM type 2: SSI. Monitor. 7. Medical compliance issues: Patient frequently refuses UF with HD. Compliance encouraged. Miralax. Subjective: Patient was seen and examined at the bedside. c/o constipation. General Appearance: General appearance: well-developed, appears stated age, not in distress, NC O2 HEENT: ATNC, pupils equal Neck: trachea midline Respiratory: ctab Heart: regular, S1S2, no murmur Abdomen: soft, bowel sounds heard, not tender Integumentary: no rash, warm and dry Neurologic: AO, able to move extremities Ext: no edema Hemodialysis access: L arm AVF Subjective Date of service: 12/03/20 Principal diagnosis: Ac. hypoxemic resp failure; HTNsive emergency; ESRD; CAD; CHF; Asthma Objective - Vital Signs Vital signs: Vital Signs - 12hr 12/02/20 12/02/20 12/02/20 21:00 22:00 22:07 Temperature Pulse Rate 80 90 Respiratory Rate Blood Pressure 151/75 O2 Sat by Pulse 98 Oximetry 12/02/20 12/03/20 12/03/20 23:14 01:00 04:08 Temperature 98.1 F 98.1 F Pulse Rate 88 88 78 Respiratory 18 16 Rate Blood Pressure 152/78 137/69 O2 Sat by Pulse 100 100 Oximetry 12/03/20 12/03/20 05:00 07:27 Temperature 98.0 F Pulse Rate 76 80 Respiratory 18 Rate Blood Pressure 150/77 O2 Sat by Pulse 100 Oximetry - Lab 12/02/20 08:57 12/02/20 08:57 Most recent lab results ABG pH 7.401 (7.320-7.450) 11/30/20 20:37 ABG O2 Saturation 95.3 (0-100) 11/30/20 20:37 Calcium 9.8 mg/dL (8.4-10.2) 12/02/20 08:57 Medications & Allergies - Medications Allergies/Adverse Reactions: Allergies No Known Allergies Allergy (Verified 03/26/13 02:01) Home Medications: Home Medications Medication Instructions Recorded Confirmed Last Taken Type Aspirin 81 mg PO DAILY 05/25/18 12/02/20 11/29/20 History Furosemide [Lasix TAB] 40 mg PO QDAY 05/25/18 12/02/20 11/29/20 History Hydralazine HCl 50 mg PO TID 05/25/18 12/02/20 11/29/20 History Metoprolol Tartrate 25 mg PO BID 05/25/18 12/02/20 11/29/20 History Tamsulosin [Flomax] 0.4 mg PO QDAY 05/25/18 12/02/20 11/29/20 History amLODIPine 10 mg PO DAILY 05/25/18 12/02/20 11/29/20 History Albuterol Sulfate [Ventolin Hfa] 18 gm IH PRN #1 hfa.aer.ad 05/28/18 12/02/20 11/29/20 Rx Rosuvastatin Calcium [Crestor] 10 mg PO QDAY 12/02/20 12/02/20 11/29/20 History cloNIDine [Catapres] 0.2 mg PO QDAY 12/02/20 12/02/20 11/29/20 History Active Medications: Generic Name Dose Route Start Last Admin Trade Name Freq PRN Reason Stop Dose Admin Albuterol 2.5 mg 11/30/20 17:00 Albuterol 2.5 Mg/3 Ml Nebu IH Q3HRT PRN Shortness Of Breath Amlodipine Besylate 10 mg 11/30/20 17:00 12/02/20 09:24 Amlodipine 10 Mg Tab PO 10 mg DAILY MAILE Administration Aspirin 81 mg 11/30/20 17:00 12/02/20 09:16 Aspirin 81 Mg Tab Chew PO 81 mg DAILY MAILE Administration Atorvastatin Calcium 80 mg 11/30/20 22:00 12/02/20 22:07 Atorvastatin 40 Mg Tab PO 80 mg QHS MAILE Administration Clopidogrel Bisulfate 75 mg 12/01/20 10:00 12/02/20 09:17 Clopidogrel 75 Mg Tab PO 75 mg QDAY MAILE Administration Furosemide 40 mg 11/30/20 17:00 12/02/20 09:18 Furosemide 40 Mg Tab PO 40 mg QDAY MAILE Administration Heparin Sodium (Porcine) 5,000 unit 12/01/20 22:00 12/02/20 22:08 Heparin 5,000 Unit/1 Ml Vial SUB-Q 5,000 unit Q12HR MAILE Administration Hydralazine HCl 100 mg 12/01/20 20:00 12/02/20 22:07 Hydralazine 100 Mg Tab PO 100 mg TID MAILE Administration Sodium Chloride 100 mls @ 999 mls/hr 11/30/20 20:36 Nacl 0.9% IV LIO PRN Hypotension Nicardipine HCl 40 mg/ Sodium 250 mls @ 31.25 mls/hr 12/01/20 05:00 12/01/20 16:11 Chloride IV 0 mg/hr TITR MAILE 0 mls/hr Titration Protocol 5 MG/HR Sodium Chloride 100 mls @ 999 mls/hr 12/01/20 10:08 Nacl 0.9% IV LIO PRN Hypotension Lisinopril 10 mg 12/01/20 10:00 12/02/20 09:17 Lisinopril 10 Mg Tab PO 10 mg QDAY MAILE Administration Metoprolol Tartrate 100 mg 12/01/20 22:00 12/02/20 22:07 Metoprolol Tartrate 100 Mg Tab PO 100 mg BID MAILE Administration Ondansetron HCl 4 mg 12/01/20 22:45 12/02/20 19:10 Ondansetron 4 Mg/2 Ml Inj IV 4 mg Q6H PRN Administration Nausea And Vomiting Pantoprazole Sodium 40 mg 12/01/20 18:00 12/02/20 07:27 Pantoprazole 40 Mg Tab PO 40 mg QDAC MAILE Administration Sodium Chloride 10 ml 11/30/20 22:00 12/02/20 22:08 Sodium Chloride 0.9% 10 Ml Flush Syringe IV 10 ml BID MAILE Administration Sodium Chloride 10 ml 11/30/20 17:00 Sodium Chloride 0.9% 10 Ml Flush Syringe IV PRN PRN LINE FLUSH Tamsulosin HCl 0.4 mg 12/01/20 10:00 12/02/20 09:23 Tamsulosin 0.4 Mg Cap PO 0.4 mg QDAY MAILE Administration
[2020-12-03 09:01] VITALS: BP 150/77
[2020-12-03] MEDS: HEPARIN 5,000 UNIT/1 ML VIAL SUB-Q SCH (10:17)
[2020-12-03] MEDS: ASPIRIN 81 MG TAB CHEW PO SCH (10:18)
[2020-12-03] MEDS: METOPROLOL TARTRATE 100 MG TAB PO SCH (10:18)
[2020-12-03] MEDS: FUROSEMIDE 40 MG TAB PO SCH (10:18)
[2020-12-03] MEDS: TAMSULOSIN 0.4 MG CAP PO SCH (10:18)
[2020-12-03] MEDS: LISINOPRIL 10 MG TAB PO SCH (10:18)
[2020-12-03] MEDS: hydrALAZINE 100 MG TAB PO SCH ×2 (10:18→13:44)
[2020-12-03] MEDS: CLOPIDOGREL 75 MG TAB PO SCH (10:18)
[2020-12-03] MEDS: PANTOPRAZOLE 40 MG TAB PO SCH (10:30)
[2020-12-03] MEDS: amLODIPine 10 MG TAB PO SCH (10:30)
[2020-12-03] MEDS ORDERED: POLYETHYLENE GLYCOL 3350 17 GM POWDER PO PRN (11:00)
--- NOTE | 2020-12-03 13:57 | Progress Note ---
Assessment and Plan 60 YO Male with ESRD on HD(T,R,Sa) who underwent dialysis yesterday, HTN,DM, CA, CHF, Asthma, LDD presents to ED for evaluation. Patient states that he has experienced shortness of breath over the past 4 days with persistent symptoms over the same timeframe. Patient acknowledges dry cough. EMS was notified and upon arrival the patient was found to be in distress and subsequently transported to [facility] for further care and evaluation of the aforementioned symptoms. Patient seen and evaluated in the emergency department. All lab and imaging studies reviewed. Patient found to have a pulse oximetry of 88% on room air with exertion which is consistent with acute hypoxemic respiratory failure. Patient also found to have hypertensive urgency with blood pressure of 263/162, metabolic acidosis, as well as end-stage renal disease. Patient treated with noninvasive positive pressure ventilation with mild improvement in symptoms. Patient also initiated on nitro drip and admitted to ICU. Patient denies fever, chills, chest pain, palpitation, productive cough, skin rash recent ill contacts, known exposure to COVID-19. Patient has history of smoking 2 packs x 30 years. Stopped smoking 5 years ago. Denies alcohol or drug abuse. Worked as [employer]. Disabled now. and has two children. No known drug allergies. Patient alert, awake and resting on 2 litres O2. O2 saturation 100%. No complaint of chest pain, shortness of breath or cough. Patient afebrile. Has leukocytosis. Patients blood pressure came down to 150/77. Chest xray done 11/30/20 reported Findings likely indicating mild CHF . Patient is on Lasix, S/C Heparin, Protonix, and albuterol/atrovent aerosol treatments. - Patient Problems (1) Acute respiratory failure with hypoxia Current Visit: No Status: Acute Plan to address problem: O2 2 litres. Albuterol/atrovent aerosol treatments. S/C Heparin Protonix. (2) Acute exacerbation of CHF (congestive heart failure) Current Visit: No Status: Acute Qualifiers: Heart failure type: combined systolic and diastolic Qualified Code(s): I50.43 - Acute on chronic combined systolic (congestive) and diastolic (congestive) heart failure Plan to address problem: Patient is on I/V lasix. Management as per primary care and cardiology. (3) End stage renal disease Current Visit: Yes Status: Acute Plan to address problem: Management as per nephrology. (4) Hypertension Current Visit: No Status: Chronic Qualifiers: Hypertension type: essential hypertension Qualified Code(s): I10 - Essential (primary) hypertension Plan to address problem: Management as per primary care. (5) Insulin dependent diabetes mellitus Current Visit: No Status: Chronic Plan to address problem: Management as per primary care. Subjective Date of service: 12/03/20 Principal diagnosis: Ac. hypoxemic resp failure; HTNsive emergency; ESRD; CAD; CHF; Asthma Interval history: 60 YO Male with ESRD on HD(T,R,Sa) who underwent dialysis yesterday, HTN,DM, CA, CHF, Asthma, LDD presents to ED for evaluation. Patient states that he h as experienced shortness of breath over the past 4 days with persistent symptoms over the same timeframe. Patient acknowledges dry cough. EMS was notified and upon arrival the patient was found to be in distress and subsequently transported to [facility] for further care and evaluation of the aforementioned symptoms. Patient seen and evaluated in the emergency department. All lab and imaging studies reviewed. Patient found to have a pulse oximetry of 88% on room air with exertion which is consistent with acute hypoxemic respiratory failure. Patient also found to have hypertensive urgency with blood pressure of 263/162, metabolic acidosis, as well as end-stage renal disease. Patient treated with noninvasive positive pressure ventilation with mild improvement in symptoms. Patient also initiated on nitro drip and admitted to ICU. Patient denies fever, chills, chest pain, palpitation, productive cough, skin rash recent ill contacts, known exposure to COVID-19. Patient has history of smoking 2 packs x 30 years. Stopped smoking 5 years ago. Denies alcohol or drug abuse. 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 and has two children. No known drug allergies. Patient alert, awake and resting on 2 litres O2. O2 saturation 100%. No complaint of chest pain, shortness of breath or cough. Patient afebrile. Has leukocytosis. Patients blood pressure came down to 150/77. Chest xray done 11/30/20 reported Findings likely indicating mild CHF . Patient is on Lasix, S/C Heparin, Protonix, and albuterol/atrovent aerosol treatments. Objective Vital Signs - 12hr 12/03/20 12/03/20 12/03/20 04:08 05:00 07:27 Temperature 98.1 F 98.0 F Pulse Rate 78 76 80 Respiratory 16 18 Rate Blood Pressure 137/69 150/77 O2 Sat by Pulse 100 100 Oximetry Constitutional: no acute distress, alert Eyes: non-icteric ENT: oropharynx moist Neck: supple, no lymphadenopathy Ascultation: Bilateral: rales Cardiovascular: regular rate and rhythm Gastrointestinal: normoactive bowel sounds, soft, non-tender Integumentary: normal Extremities: no cyanosis, edema (trace edema.) Neurologic: normal mental status, non-focal exam, pupils equal and round, CN II- XII normal Psychiatric: mood appropriate, affect normal CBC and BMP: 12/02/20 08:57 12/02/20 08:57 ABG, PT/INR, D-dimer: ABG ABG pH 7.401 (7.320-7.450) 11/30/20 20:37 POC ABG pCO2 38.0 mmHg (32.0-48.0) 11/30/20 20:37 POC ABG pO2 77.8 mmHg (83-108) L 11/30/20 20:37 POC ABG HCO3 23.1 11/30/20 20:37 ABG O2 Saturation 95.3 (0-100) 11/30/20 20:37 PT/INR, D-dimer PT 12.8 Sec. (12.2-14.9) 11/30/20 10:47 INR 0.90 (0.87-1.13) 11/30/20 10:47 Abnormal lab findings: Abnormal Labs 11/30/20 11/30/20 11/30/20 13:28 13:28 16:51 WBC RBC Hgb Hct RDW Lymph % (Auto) Atlantic % (Auto) Baso % (Auto) Lymph # (Auto) [place] # (Auto) Baso # (Auto) Seg Neutrophils % Seg Neutrophils # POC ABG pO2 ABG Hemoglobin ABG Glucose VBG pH 7.283 L Chloride Carbon Dioxide BUN Creatinine Glucose POC Glucose Lactic Acid 3.00 H* 2.30 H* Arterial Blood Glucose 11/30/20 11/30/20 11/30/20 20:37 Unknown Unknown WBC 13.9 H RBC Hgb Hct RDW 20.3 H Lymph % (Auto) Atlantic % (Auto) Baso % (Auto) 2.7 H Lymph # (Auto) [place] # (Auto) 1.0 H Baso # (Auto) 0.4 H Seg Neutrophils % 70.4 H Seg Neutrophils # 9.8 H POC ABG pO2 77.8 L ABG Hemoglobin 11.0 L ABG Glucose 230 H VBG pH Chloride Carbon Dioxide BUN 30 H Creatinine 8.2 H Glucose 217 H POC Glucose Lactic Acid Arterial Blood Glucose 230 H 12/01/20 12/01/20 12/01/20 04:46 04:46 11:45 WBC RBC 3.50 L Hgb 10.8 L Hct 31.6 L RDW 20.0 H Lymph % (Auto) 7.6 L Atlantic % (Auto) 11.2 H Baso % (Auto) Lymph # (Auto) 0.8 L Atlantic # (Auto) 1.1 H Baso # (Auto) Seg Neutrophils % 80.9 H Seg Neutrophils # 8.0 H POC ABG pO2 ABG Hemoglobin ABG Glucose VBG pH Chloride Carbon Dioxide BUN Creatinine 4.1 H Glucose 110 H POC Glucose 146 H Lactic Acid Arterial Blood Glucose 12/02/20 12/02/20 08:57 08:57 WBC 13.4 H RBC Hgb Hct RDW 20.8 H Lymph % (Auto) 9.2 L Atlantic % (Auto) 9.7 H Baso % (Auto) Lymph # (Auto) Atlantic # (Auto) 1.3 H Baso # (Auto) Seg Neutrophils % 79.7 H Seg Neutrophils # 10.7 H POC ABG pO2 ABG Hemoglobin ABG Glucose VBG pH Chloride 94.8 L Carbon Dioxide 35 H D BUN 23 H Creatinine 4.9 H Glucose 135 H POC Glucose Lactic Acid Arterial Blood Glucose Chest x-ray: report reviewed, image reviewed Additional Studies: CHEST 1 VIEW 11/30/2020 10:31 AM INDICATION / CLINICAL INFORMATION: Shortness of breath. COMPARISON: 03/08/2020 FINDINGS: SUPPORT DEVICES: None. HEART / MEDIASTINUM: Mild cardiomegaly. LUNGS / PLEURA: Mild interstitial edema has developed. No pneumothorax. ADDITIONAL FINDINGS: No significant additional findings. IMPRESSION: 1. Findings likely indicating mild CHF as above.
[2020-12-03] MEDS ORDERED: IPRATROPIUM/ALBUTEROL SULFATE 3 ML AMPUL.NEB IH SCH ×2 (14:00→20:00)
[2020-12-03] MEDS ORDERED: ALBUTEROL 2.5 MG/3 ML NEBU IH PRN (16:00)
--- NOTE | 2020-12-03 16:54 | Discharge Summary ---
Providers - Providers Date of Admission: 11/30/20 16:37 Date of discharge: 12/03/20 Attending physician: ABBI LY 11/30/20 16:37 Consult to Physician [CONS] Routine Comment: called answ. serv./ robbin Consulting Provider: JAMES HAMILTON Physician Instructions: Reason For Exam: Respiratory failure, HTN emergency on nitro drip 12/03/20 10:38 Physical Therapy Evaluation and Treat [CONS] Routine Comment: Reason For Exam: Debility Primary care physician: LOG YARD DERRICK OPERATOR Hospitalization Condition: Fair Hospital course: The patient is a 60 YO male with history significant for DM type 2, HTN, CAD, Asthma, LDD, Anemia and ESRD on HD(TTS) who presented to [facility] ED 11/30 with c/o sob. On presentation the pulse oximetry was 88% on room air. Patient also found to have hypertensive urgency with blood pressure of 263/162. CXR showed interstitial edema. Patient was treated with noninvasive positive pressure ventilation with mild improvement in symptoms. Patient was also initiated on nitro drip and admitted to ICU. He underwent urgent hemodialysis with removal of about 2 Lts of fluid. Nephrology was consulted for ESRD management. His nitro drip was then changed to Cardene drip, resumed home antihypertensives and adjusted the doses. Patient was then eventually weaned off from the Cardene drip. He received his scheduled hemodialysis and was weaned off from the oxygen. He was assessed for home oxygen requirement before discharge. Patient was then discharged home in stable condition with outpatient follow-up. He was encouraged in compliance with medications and outpatient dialysis -patient verbalized understanding. Disposition: DC/TX- HOME UNDER HOME [facility] Final Discharge Diagnosis (Prints w/discharge instructions): Acute hypoxic respiratory failure with pulmonary edema. Hypertensive emergency. End-stage renal disease. Metabolic acidosis Time spent for discharge: 34 minutes Core Measure Documentation - Palliative Care Palliative Care/ Comfort Measures: Not Applicable - Core Measures Any of the following diagnoses?: none Exam - Physical Exam Narrative exam: GENERAL: well-developed elderly -[place] male lying on bed appeared to be in no discomfort. HEENT: Normocephalic. Atraumatic. No conjunctival congestion or icterus. Pat ient has moist mucous membranes. NECK: Supple. Trachea midline. CHEST/LUNGS: Clear to auscultated bilaterally, breathing nonlabored. No wheezes crackles or rhonchi. HEART/CARDIOVASCULAR: Regular in rate and rhythm. S1 and S2 positive. ABDOMEN: Abdomen is soft, nontender. Patient has normal bowel sounds. SKIN: There is no rash. Warm and dry. NEURO: No focal motor deficit. Follows command. MUSCULOSKELETAL: No joint effusion or tenderness. EXTRIMITY: No edema, no cyanosis or clubbing. PSYCH: Cooperative. - Constitutional Vitals: Temp Pulse Resp BP Pulse Ox 98.0 F 80 18 150/77 100 12/03/20 07:27 12/03/20 14:26 12/03/20 14:26 12/03/20 07:27 12/03/20 14:32 Plan Activity: advance as tolerated Weight Bearing Status: Weight Bear as Tolerated Diet: renal Follow up with: PRIMARY CARE, [Primary Care Provider] - 7 Days Prescriptions: Metoprolol [Lopressor TAB] 100 mg PO BID #60 tablet Pantoprazole [Protonix TAB] 40 mg PO QDAC #30 tablet
== END 2020-12-03 20:39 | disposition home health service (06) | DRG 291 ==
LOC: ED 10:37 → CC1 16:37 → IMCU 12-01 19:26 → 4A 12-02 12:06
PROVIDERS: ADMIT Internal Medicine; ATTEND Internal Medicine
PROC: 5A1D70Z Performance of Urinary Filtration, Intermittent, Less than 6 Hours Per Day (ICD-10-PCS; principal; 2020-11-30)
PROC: 5A09357 Assistance with Respiratory Ventilation, Less than 24 Consecutive Hours, Continuous Positive Airway Pressure (ICD-10-PCS; 2020-11-30)
PROC: 5A1D70Z Performance of Urinary Filtration, Intermittent, Less than 6 Hours Per Day (ICD-10-PCS; 2020-12-01)
PROC: 5A09357 Assistance with Respiratory Ventilation, Less than 24 Consecutive Hours, Continuous Positive Airway Pressure (ICD-10-PCS; 2020-12-01)
DX: I13.2 Hypertensive heart and chronic kidney disease with heart failure and with stage 5 chronic kidney disease, or end stage renal disease (principal); J96.01 Acute respiratory failure with hypoxia; N18.6 End stage renal disease; I50.43 Acute on chronic combined systolic (congestive) and diastolic (congestive) heart failure; I16.1 Hypertensive emergency; E87.2 Acidosis; J81.1 Chronic pulmonary edema; D64.9 Anemia, unspecified; Z20.822 Contact with and (suspected) exposure to COVID-19; I25.10 Atherosclerotic heart disease of native coronary artery without angina pectoris; E87.70 Fluid overload, unspecified; J45.909 Unspecified asthma, uncomplicated; D72.829 Elevated white blood cell count, unspecified; M54.30 Sciatica, unspecified side; I25.2 Old myocardial infarction; Z83.3 Family history of diabetes mellitus; Z82.49 Family history of ischemic heart disease and other diseases of the circulatory system; Z91.19 Patient's noncompliance with other medical treatment and regimen; Z87.891 Personal history of nicotine dependence; Z79.4 Long term (current) use of insulin
CPT/HCPCS: 36415; 36600; 71045; 80048; 80053; 80074; 82140; 82805; 82962; 84145; 84439; 84443; 85025; 85610; 85730; 87040; 93005; 94640; 94644; 94660; 96374; G0378; A9270-GY; J1644; J2405; J7050; U0003

== ENCOUNTER 2020-12-29 21:26 | Emergency (ER) | payer MEDICARE ==
[~2020-12-29 21:26] MED LIST: AMIODARONE 150 MG/3 ML INJ IV ONE; DEXTROSE 50% IN WATER (25GM) 50 ML SYRINGE IV ONE; EPINEPHrine 1 MG/10 ML SYRINGE ONE; MAGNESIUM SULFATE 1 GM/2ML (4 MEQ/1ML) INJ ONE; SODIUM BICARB 8.4% 50 MEQ/50 ML SYRINGE IV ONE
--- NOTE | 2020-12-29 21:59 | Emergency Department Report ---
HPI - General Chief Complaint: Cardiac Arrest/CPR Time Seen by Provider: 12/29/20 21:52 - HPI HPI: 6-year-old male with history of CHF and ESRD on HD brought in by EMS as a cardiac arrest. According to the EMS report, the patient was found down in his backyard by his . Moments before this he had called her and asked for help. Apparently he had missed his dialysis for the last week for unknown reasons. When EMS arrived at 2046, the patient had agonal breathing, and by 2056 he went into cardiac arrest with the initial rhythm being asystole. CPR was started and ACLS protocol was followed. The patient was administered cardiac epi x3. At 1 point his rhythm changed to V. fib and he was defibrillated once just prior to arrival in the emergency department. Further details of the HPI are limited due to the patient's clinical condition. ED Past Medical Hx - Past Medical History Hx Hypertension: Yes Hx Heart Attack/AMI: Yes Hx Congestive Heart Failure: Yes Hx Diabetes: Yes Hx Renal Disease: Yes Hx Asthma: Yes Additional medical history: sciatica, enlarged pancreas - Surgical History Additional Surgical History: fistula repair, cerbral aneurysm - Social History Smoking Status: Former Smoker - Medications Home Medications: Home Medications Medication Instructions Recorded Confirmed Last Taken Type Aspirin 81 mg PO DAILY 05/25/18 12/02/20 11/29/20 History Furosemide [Lasix TAB] 40 mg PO QDAY 05/25/18 12/02/20 11/29/20 History Tamsulosin [Flomax] 0.4 mg PO QDAY 05/25/18 12/02/20 11/29/20 History amLODIPine 10 mg PO DAILY 05/25/18 12/02/20 11/29/20 History Albuterol Sulfate [Ventolin Hfa] 18 gm IH PRN #1 [email or web address] 05/28/18 12/02/20 11/29/20 Rx Rosuvastatin Calcium [Crestor] 10 mg PO QDAY 12/02/20 12/02/20 11/29/20 History Metoprolol [Lopressor TAB] 100 mg PO BID #60 tablet 12/03/20 Unknown Rx Pantoprazole [Protonix TAB] 40 mg PO QDAC #30 tablet 12/03/20 Unknown Rx ED Review of Systems ROS: Stated complaint: CARDIAC ARREST Other details as noted in HPI Comment: Unobtainable due to pts medical conditions Physical Exam - Physical Exam Physical Exam: GENERAL: Well developed and well nourished male. Obtunded and unresponsive. HEAD: Normocephalic. No obvious signs of trauma. ENT: Paul airway is in place. Patient has vomitus seen coming from the mouth. EYES: Pupils are fixed and dilated bilaterally. NECK: Supple. Full ROM is intact. Trachea is midline. LUNGS: Bilateral breath sounds with bag valve ventilation CARDIOVASCULAR: Chest compressions ongoing VASCULAR: Left upper extremity fistula is noted ABDOMEN: Abdomen is distended but soft SKIN: Skin is cool and dry NEURO: Unresponsive. MUSCULOSKELETAL: No obvious deformities. . - Intubation Laryngoscope: Francesca Size: 4 ET Tube Size: 7.5 Tube Secured Depth (cm): 22 Tube Secured Location: lips Tube Placement Confirmation: visualized tube passing t, equal breath sounds bilat, confirmation by capnometr Patient Tolerated Procedure: well, no complications Intubation Complications: none - IO Right Tibia Consent Obtained: emergent situation IO Instrument Used to Penetrate the Cortex: battery powered IO drill Patient Tolerated Procedure: well Complications: none ED Medical Decision Making - Lab Data Lab Results 12/29/20 Range/Units 21:49 POC Glucose 164 H (70-105) mg/dL - Medical Decision Making 60-year-old male with history of ESRD on HD brought in by EMS in cardiac arrest. He was found down by his after he reportedly called her asking for help. EMS arrived and the patient had agonal breathing. Soon thereafter he went to cardiac arrest and CPR was started. ACLS protocol was followed followed and the patient was given 3 doses of cardiac epi prior to arrival at our emergency department. He was defibrillated once. He has a Paul airway in place and initially had an IO to his left tibia but it dislodged while the [facility] was [facility]. I placed an IO into the right tibia. ACLS protocol was followed and the patient was given multiple doses of cardiac epi. Given his history of ESRD with report of missed hemodialysis, he was administered 3 Amps of bicarb, calcium x2, and magnesium in addition to epinephrine per ACLS protocol. At one point the patient's rhythm changed to coarse V. fib and was defibrillated at 200 J. He was given 300 mg of amiodarone. The patient's blood sugar was 164. I exchanged the Paul airway for an endotracheal tube. Unfortunately, the patient never regained a pulse and time of was called at 2150. Critical care attestation.: If time is entered above; I have spent that time in minutes in the direct care of this critically ill patient, excluding procedure time. ED Disposition Clinical Impression: Cardiac arrest, ESRD (end stage renal disease) Disposition: DC-20 Is pt being admited?: No Referrals: PRIMARY CARE, [Primary Care Provider] - 3-5 Days
== END 2020-12-30 01:30 ==
LOC: ED 21:26
DX: I46.9 Cardiac arrest, cause unspecified (principal); E11.22 Type 2 diabetes mellitus with diabetic chronic kidney disease; I13.2 Hypertensive heart and chronic kidney disease with heart failure and with stage 5 chronic kidney disease, or end stage renal disease; N18.6 End stage renal disease; J45.909 Unspecified asthma, uncomplicated; Z98.890 Other specified postprocedural states
CPT/HCPCS: 31500; 36680; 82962; 92950; 99285; J0171; J0282; J3475